=== PATIENT | female | born 1975 | race Caucasian/White ===

== ENCOUNTER → 2018-02-10 16:47 | Outpatient (CLI) | payer OTHER, SELFPAY ==
--- NOTE | 2018-02-10 16:51 | RAD_ITS ---
STUDY: X-RAY - ABDOMEN/PELVIS REASON FOR EXAM: Female, 42 years old. Left flank pain TECHNIQUE: Supine and upright views of the abdomen and pelvis were obtained. COMPARISON: None. FINDINGS: The lung bases are unremarkable. There is an unremarkable bowel gas pattern. There is no demonstrated free abdominal air. There is a 7 mm calcific density in the right upper abdomen. There are a few small calcific densities projected over the mid left renal shadow on all of the images. There are small calcifications in the low pelvis. The soft tissues are unremarkable. There is minimal levoscoliosis. RAD/Abd Inc Decub and/or Erect IMPRESSION: There are three or four calcific densities in the low right pelvis and a tiny calcific density in the low left pelvis. Although these likely represent phleboliths, ureteral stones are not completely excluded. There are questionable stones in the midpole of the left kidney. There is a possible 7 mm gallstone in the right upper abdomen. Electronically Signed: Tiesha Amin MD at 17:11 EDT Tel Direct: [phone], Service support ,
== END ==
PROVIDERS: Family Provider Family Medicine; PCP Family Medicine; Visit Provider Nurse Practitioner Adult Health
DX: R10.32 Left lower quadrant pain (principal)
CPT/HCPCS: 74019

== ENCOUNTER → 2018-05-19 14:26 | Outpatient (CLI) | payer OTHER, SELFPAY ==
[2018-05-19 21:31] LABS: Follicle Stimulating Hormone 25.5 mIU/mL; Luteinizing Hormone 38.4 mIU/mL; Thyroid Stim Hormone (TSH) 4.04 uIU/mL (0.358-3.74)
--- OUTSIDE RECORDS SUMMARY | 2018-08-21 02:09 | XMS RPT_ITS ---
:1975 Author Organization [facility] Care Team Providers Name Role Phone Tita Martinez Attending Unavailable Tita Martinez Referring Unavailable Tremayne Roman Primary Care Unavailable Tita Martinez Attending Unavailable Tita Martinez Referring Unavailable Tremayne Roman Primary Care Unavailable Tita Martinez Attending Unavailable Tita Martinez Referring Unavailable Tremayne Roman Primary Care Unavailable PROBLEMS PROBLEMS DATE TYPE CONDITION / CODE ATTENDING STATUS SOURCE 02/10/2018 Unknown R10.32 - Left Tita Martinez Active [place] lower quadrant [facility] pain / Hospital R10.32(ICD-10) Repository PROCEDURES PROCEDURES No Procedure Records FoundRESULTS RESULTS TRANSVAGINAL Observed: 05/28/2018 Status: F Source: [place] NON- 12:17 PM [facility] REPOSITORY [facility] Imaging Services [address] [place] [address] Transvaginal Non- MR#: [id number] Acct: [id number] Name: CHATO LLAMAS Rep #: [id number] : 1975 F 42 From: Sridhar Malagon DO PCP: Tremayne Roman MD Status: REG CLI Study: Transvaginal Non- Date of Exam: 05/28/18 Exam# [id number] Ordering Dr: Tita Martinez STUDY: ULTRASOUND OF THE FEMALE PELVIS - COMPLETE REASON FOR EXAM: Female, 42 years old. Amenorrhea. Light. Began 2 days ago. LMP: May 26, 2018. TECHNIQUE: Transabdominal and Transvaginal TECHNICAL QUALITY: Adequate. COMPARISON: None FINDINGS: The uterus is anteverted and is in a midline position. The uterus measures 9.2 x 5.6 x 3.9 cm. There is a Nabothian cyst of the cervix. The endometrium measures 6 mm in thickness, and is . There is no demonstrated endometrial mass. There is a 1 x 0.7 x 0.8 cm subserosal fibroid in the anterior fundal wall I.U.D. - The patient does not have an I.U.D. The right ovary is visualized. The right ovary measures 4.3 x 3.8 x 2.9 cm. There is a 3.2 x 3.6 x 2.6 cm simple. Other follicles are noted.. There is no visualized right adnexal mass or complex lesion. There is normal arterial and normal venous vascularity. The left ovary is visualized. The left ovary measures 3.4 x 2.9 x 1.8 cm. There is a 2.2 x 2.4 x 1.8 cm cyst. There is no visualized left adnexal mass or complex lesion. There is normal arterial and normal venous vascularity. There is no fluid in the cul-de-sac. The pre void volume of the bladder was 59 ml. Polycystic ovary disease: No. US/Transvaginal Non- IMPRESSION: 1. Anterior subserosal fundal fibroid. 2. Normal endometrium. 3. Nabothian cysts. 4. Bilateral ovarian cysts. Electronically Signed: Sridhar Malagon DO at 19:54 EST Tel [phone], Service support , CC: BRODIE Martinez; Tremayne Roman MD Tongue Presser: Signed PELVIC (NON ) Observed: 05/28/2018 Status: F Source: [place] 12:17 PM [facility] REPOSITORY [facility] Imaging Services [address] [place] [address] Pelvic (Non ) MR#: [id number] Acct: [id number] Name: CHATO LLAMAS Rep #: [id number] : 1975 F 42 From: Sridhar Malagon DO PCP: Tremayne Roman MD Status: REG CLI Study: Pelvic (Non ) Date of Exam: 05/28/18 Exam# [id number] Ordering Dr: Tita Martinez HIM SPECIALIST-C STUDY: ULTRASOUND OF THE FEMALE PELVIS - COMPLETE REASON FOR EXAM: Female, 42 years old. Amenorrhea. Light. Began 2 days ago. LMP: May 26, 2018. TECHNIQUE: Transabdominal and Transvaginal TECHNICAL QUALITY: Adequate. COMPARISON: None FINDINGS: The uterus is anteverted and is in a midline position. The uterus measures 9.2 x 5.6 x 3.9 cm. There is a Nabothian cyst of the cervix. The endometrium measures 6 mm in thickness, and is . There is no demonstrated endometrial mass. There is a 1 x 0.7 x 0.8 cm subserosal fibroid in the anterior fundal wall I.U.D. - The patient does not have an I.U.D. The right ovary is visualized. The right ovary measures 4.3 x 3.8 x 2.9 cm. There is a 3.2 x 3.6 x 2.6 cm simple. Other follicles are noted.. There is no visualized right adnexal mass or complex lesion. There is normal arterial and normal venous vascularity. The left ovary is visualized. The left ovary measures 3.4 x 2.9 x 1.8 cm. There is a 2.2 x 2.4 x 1.8 cm cyst. There is no visualized left adnexal mass or complex lesion. There is normal arterial and normal venous vascularity. There is no fluid in the cul-de-sac. The pre void volume of the bladder was 59 ml. Polycystic ovary disease: No. US/Pelvic (Non ) IMPRESSION: 1. Anterior subserosal fundal fibroid. 2. Normal endometrium. 3. Nabothian cysts. 4. Bilateral ovarian cysts. Electronically Signed: Sridhar Malagon DO at 19:54 EST Tel [phone], Service support , CC: BRODIE Martinez; Tremayne Roman MD Tongue Presser: Signed THYROID STIM HORMONE Collected: 05/19/2018 Status: F Source: [place] (TSH) 2:34 PM [facility] REPOSITORY TYPE CODE TESTS RESULT OUT OF RANGE REFERENCE UNITS LAB L501.9520 0.358-3.74 uIU/mL High TSH 4.04 Performed By: #### L501.9520 #### [facility] [address] [place], [address] FSH AND LH Collected: 05/19/2018 Status: F Source: [place] 2:34 PM [facility] REPOSITORY TYPE CODE TESTS RESULT OUT OF RANGE REFERENCE UNITS LAB L3100.5125 mIU/mL Normal FSH 25.5 Result Comment: NORMAL REFERENCE RANGES FEMALE FOLLICULAR 2.3 - 12.6 mIU/mL MID-CYCLE PEAK 5.2 - 17.5 mIU/mL LUTEAL 1.7 - 12.9 mIU/mL POST-MENOPAUSAL ON MHT 5.9 - 72.8 mIU/mL NOT ON MHT 12.7 - 132.2 mlU/mL MALE 0.7 - 10.8 mIU/mL NEW TEST METHOD AND REFERENCE RANGES OCTOBER 21, 2011 LAB L3100.5170 mIU/mL Normal 38.4 LH Result Comment: NORMAL REFERENCE RANGES FEMALE FOLLICULAR 1.9 - 26.2 mIU/mL MID-CYCLE PEAK 22.8 - 76.1 mIU/mL LUTEAL 0.6 - 16.6 mIU/mL POST-MENOPAUSAL ON MHT 1.1 - 52.4 mIU/mL NOT ON MHT 8.6 - 61.8 mIU/mL MALE 1.2 - 10.6 mIU/mL NEW TEST METHOD AND REFERENCE RANGES OCTOBER 21, 2011 Performed By: #### L3100.5055 #### [facility] [address], [address] ABD INC DECUB Observed: 02/10/2018 Status: F Source: [place] AND/OR ERECT 4:52 PM [facility] REPOSITORY [facility] Imaging Services [address] [place] [address] Abd Inc Decub and/or Erect MR#: [id number] Acct: [id number] Name: CHATO LLAMAS Rep #: [id number] : 1975 F 42 From: Tiesha Amin MD PCP: Tremayne Roman MD Status: REG CLI Study: Abd Inc Decub and/or Erect Date of Exam: 02/10/18 Exam# [id number] Ordering Dr: Tita Martinez STUDY: X-RAY - ABDOMEN/PELVIS REASON FOR EXAM: Female, 42 years old. Left flank pain TECHNIQUE: Supine and upright views of the abdomen and pelvis were obtained. COMPARISON: None. FINDINGS: The lung bases are unremarkable. There is an unremarkable bowel gas pattern. There is no demonstrated free abdominal air. There is a 7 mm calcific density in the right upper abdomen. There are a few small calcific densities projected over the mid left renal shadow on all of the images. There are small calcifications in the low pelvis. The soft tissues are unremarkable. There is minimal levoscoliosis. RAD/Abd Inc Decub and/or Erect IMPRESSION: There are three or four calcific densities in the low right pelvis and a tiny calcific density in the low left pelvis. Although these likely represent phleboliths, ureteral stones are not completely excluded. There are questionable stones in the midpole of the left kidney. There is a possible 7 mm gallstone in the right upper abdomen. Electronically Signed: Tiesha Amin MD at 17:11 EDT Tel Direct: [phone], Service support , CC: Tita Martinez; Tremayne Roman MD Tongue Presser: Signed ALLERGIES ALLERGIES No Allergies Records FoundENCOUNTERS ENCOUNTERS ADMIT/DISCHARGE ACCOUNT ADMITTING ENCOUNTER LOCATION SOURCE NUMBER CLASS 05/28/2018 [id number] Ambulatory [place] [facility] ing:OPUS Repository 05/19/2018 [id number] Ambulatory [place] [facility] ing:MTLAB Repository 02/10/2018 [id number] Ambulatory [place] [facility] ing:MTRAD Repository PAYERS PAYERS ENCOUNTER GUARANTOR PAYER SUBSCRIBER SOURCE 05/28/2018 CHATO [place] Primary CHATO [place] [id number] Insurance:MEDICAL CARMONDOB: [facility] [id number] Number: Repository [id number]: [id number] [phone] (HP) Date:[id number] [address]SW: 05/28/2018 Secondary NOT GIVENUNK [place] Insurance:SELF PAY [facility] Number: Effective Repository Date:2018-05-19 05/19/2018 CHATO [place] Primary CHATO [place] [id number] Insurance:MEDICAL CARMONDOB: [facility] [id number], [place] Number: Repository [id number]: [phone] [id number] [phone] (HP) Date:[id number] [address]MS: 05/19/2018 Secondary NOT GIVENUNK [place] Insurance:SELF PAY [facility] Number: Effective Repository Date:2018-05-19 02/10/2018 CHATO [place] Primary CHATO [place] [id number] Insurance:MEDICAL CARMONDOB: [facility] [id number], [place] Number: Repository [id number]: [phone]) [id number] [phone] () Date:[id number] [address]NY: 02/10/2018 Secondary NOT GIVENUNK [place] Insurance:SELF PAY [facility] Number: Effective Repository Date:2018-02-10
== END ==
PROVIDERS: Family Provider Family Medicine; PCP Family Medicine; Referring Provider Nurse Practitioner Adult Health; Visit Provider Nurse Practitioner Adult Health
DX: R53.83 Other fatigue (principal)
CPT/HCPCS: 83001; 83002; 84443

== ENCOUNTER → 2018-05-28 12:15 | Outpatient (CLI) | payer OTHER, SELFPAY ==
--- NOTE | 2018-05-28 12:17 | US_ITS ---
STUDY: ULTRASOUND OF THE FEMALE PELVIS - COMPLETE REASON FOR EXAM: Female, 42 years old. Amenorrhea. Light. Began 2 days ago. LMP: May 26, 2018. TECHNIQUE: Transabdominal and Transvaginal TECHNICAL QUALITY: Adequate. COMPARISON: None FINDINGS: The uterus is anteverted and is in a midline position. The uterus measures 9.2 x 5.6 x 3.9 cm. There is a Nabothian cyst of the cervix. The endometrium measures 6 mm in thickness, and is . There is no demonstrated endometrial mass. There is a 1 x 0.7 x 0.8 cm subserosal fibroid in the anterior fundal wall I.U.D. - The patient does not have an I.U.D. The right ovary is visualized. The right ovary measures 4.3 x 3.8 x 2.9 cm. There is a 3.2 x 3.6 x 2.6 cm simple. Other follicles are noted.. There is no visualized right adnexal mass or complex lesion. There is normal arterial and normal venous vascularity. The left ovary is visualized. The left ovary measures 3.4 x 2.9 x 1.8 cm. There is a 2.2 x 2.4 x 1.8 cm cyst. There is no visualized left adnexal mass or complex lesion. There is normal arterial and normal venous vascularity. There is no fluid in the cul-de-sac. The pre void volume of the bladder was 59 ml. Polycystic ovary disease: No. US/Pelvic (Non ) IMPRESSION: 1. Anterior subserosal fundal fibroid. 2. Normal endometrium. 3. Nabothian cysts. 4. Bilateral ovarian cysts. Electronically Signed: Sridhar Malagon DO at 19:54 EST Tel [phone], Service support ,
--- NOTE | 2018-05-28 12:17 | US_ITS ---
STUDY: ULTRASOUND OF THE FEMALE PELVIS - COMPLETE REASON FOR EXAM: Female, 42 years old. Amenorrhea. Light. Began 2 days ago. LMP: May 26, 2018. TECHNIQUE: Transabdominal and Transvaginal TECHNICAL QUALITY: Adequate. COMPARISON: None FINDINGS: The uterus is anteverted and is in a midline position. The uterus measures 9.2 x 5.6 x 3.9 cm. There is a Nabothian cyst of the cervix. The endometrium measures 6 mm in thickness, and is . There is no demonstrated endometrial mass. There is a 1 x 0.7 x 0.8 cm subserosal fibroid in the anterior fundal wall I.U.D. - The patient does not have an I.U.D. The right ovary is visualized. The right ovary measures 4.3 x 3.8 x 2.9 cm. There is a 3.2 x 3.6 x 2.6 cm simple. Other follicles are noted.. There is no visualized right adnexal mass or complex lesion. There is normal arterial and normal venous vascularity. The left ovary is visualized. The left ovary measures 3.4 x 2.9 x 1.8 cm. There is a 2.2 x 2.4 x 1.8 cm cyst. There is no visualized left adnexal mass or complex lesion. There is normal arterial and normal venous vascularity. There is no fluid in the cul-de-sac. The pre void volume of the bladder was 59 ml. Polycystic ovary disease: No. US/Transvaginal Non- IMPRESSION: 1. Anterior subserosal fundal fibroid. 2. Normal endometrium. 3. Nabothian cysts. 4. Bilateral ovarian cysts. Electronically Signed: Sridhar Malagon DO at 19:54 EST Tel [phone], Service support ,
== END ==
PROVIDERS: Family Provider Family Medicine; PCP Family Medicine; Referring Provider Nurse Practitioner Adult Health; Visit Provider Nurse Practitioner Adult Health
DX: N91.2 Amenorrhea, unspecified (principal)
CPT/HCPCS: 76830; 76856; 93976

== ENCOUNTER → 2018-08-05 15:17 | Outpatient (CLI) | payer OTHER, SELFPAY ==
--- NOTE | 2018-08-05 15:20 | RAD_ITS ---
STUDY: X-RAY - LUMBAR SPINE REASON FOR EXAM: Female, 42 years old. Back pain. TECHNIQUE: 5 view(s) of the lumbar spine were obtained. COMPARISON: None FINDINGS: Normal lumbar lordosis. There is no substantial scoliosis. There is a normal alignment of the vertebrae. Normal vertebral bodies and endplates. Normal disc space heights. The soft tissue structures are unremarkable. RAD/L/S Spine Min 4 Views IMPRESSION: Within normal limits x-ray examination of the lumbar spine. Electronically Signed: Odilia Deng MD at 16:07 EST Tel , Service support ,
== END ==
PROVIDERS: Family Provider Family Medicine; PCP Family Medicine; Referring Provider Family Medicine; Visit Provider Family Medicine
DX: M54.9 Dorsalgia, unspecified (principal)
CPT/HCPCS: 72110

== ENCOUNTER → 2018-08-07 10:16 | Outpatient (CLI) | payer OTHER, SELFPAY ==
--- NOTE | 2018-08-07 10:25 | MRI_ITS ---
STUDY: MRI LUMBAR SPINE WITHOUT CONTRAST REASON FOR EXAM: Female, 42 years old. Low back pain radiating to left hip TECHNIQUE: Standardized fat and water weighted pulse sequences were obtained in the sagittal and axial planes. COMPARISON: None FINDINGS: T12-L1: Normal endplates. Normal disc height, hydration and morphology. Normal bilateral facet joints. Normal central canal and bilateral lateral recesses. Normal bilateral intervertebral neural foramina. Normal lumbar lordosis. There is no substantial scoliosis. Normal conus medullaris that terminates at L1 L1-2: Normal endplates. Normal disc height, hydration and morphology. Normal bilateral facet joints. Normal central canal and bilateral lateral recesses. Normal bilateral intervertebral neural foramina. L2-3: Normal endplates. Normal disc height, hydration and morphology. Normal bilateral facet joints. Normal central canal and bilateral lateral recesses. Normal bilateral intervertebral neural foramina. L3-4: Normal endplates. Normal disc height, hydration and minor annular bulge.. There is extradural soft tissue density in the left nerve root foramen extending cephalad creating left neuroforaminal stenosis and impinging upon the exiting nerve root.. This may represent an extruded disc fragment however it appears to be slightly different angle than the disc and could possibly represent a meningioma or other extradural mass. Would recommend limited repeat contrast-enhanced study Normal bilateral facet joints. Normal central canal and bilateral lateral recesses.. L4-5: Normal endplates. Normal disc height, hydration and minimal annular bulge.. Facet arthropathy and thickening of ligamenta flava.. Normal central canal and bilateral lateral recesses. Mild bilateral neuroforaminal stenosis. L5-S1: Normal endplates. Normal disc height, hydration and tiny central disc protrusion.. Bilateral facet arthropathy.. Normal central canal and bilateral lateral recesses. Normal bilateral intervertebral neural foramina. Normal visualized sacral ala. Normal visualized paraspinous soft tissue structures. MRI/Spine Lumbar (Routine) IMPRESSION: Left neuroforaminal stenosis at L3-4 and impingement upon the exiting nerve root secondary to soft tissue density possibly extruded disc fragment however cannot exclude other extradural mass. Limited repeat scan with contrast would be helpful for further assessment Mild bilateral neuroforaminal stenosis at L4-5 secondary to minimal annular bulge and facet arthropathy.. Tiny central disc protrusion at L5-S1 and bilateral facet arthropathy without spinal stenosis Electronically Signed: Bradford Tan MD at 19:28 EST , Service support ,
== END ==
PROVIDERS: Family Provider Family Medicine; PCP Family Medicine; Referring Provider Family Medicine; Visit Provider Family Medicine
DX: M54.9 Dorsalgia, unspecified (principal)
CPT/HCPCS: 72148

== ENCOUNTER 2018-08-10 13:00 | Outpatient (RCR) | payer OTHER, SELFPAY ==
--- NOTE | 2018-08-06 10:56 | HP.PTEVAL ---
Patient's Visit Information CHATO LLAMAS is a 42 year old F referred to Physical Therapy by Tremayne Roman MD with a diagnosis of Back Pain. Date of Evaluation: 08/06/18 Physical Therapist: Jennifer Pablo DPT - Visit Plan Plan: Difficult to assess secondary to signifcant pain- will re-assess when patient returns- plans to see MD immediatly after PT - Subjective Findings: Messing around with her son wrestling and felt a twinge in her back and then it has been progressively worse since then- 2 weeks ago. [place] it at the time and was okay for 5 days thought she pinched her sciatic. Went to Chiropractor Friday of last week Dr. Abrams. Who diagnosed with glut muscle and was mimicking sciatica did a manipulation pelvis/tailbone out of alignment. Went back the next day- and saw a massotherapist who gave her a foam roll. [place] okay on Friday and then Sat watched kids from bleachers and Friday was bad. Friday back to chiro and then called and saw Dr. Lopez. Gave her Flexeril at bedtim and Neurontin- took it last night at 8:30 and she has been up since 2:30 with pain. X-rays which were negative. Can't find any position that is comfortable. The pain is in the back and runs down the left leg to the knee. Worst: 10/10 Agg:walking, standing. Hard to find a comfortable position. Eases: a hot bath. Leg feels like its cramping- Feels a stabbing pain in the back and down the side of her leg. Feels like a tight ball. No N/T in the lower extremity but does have achy like after your foot is asleep and waking back up. Sleep: disturbed- has been in the reclyner. No previous back injury. Has sciatica issues after kids but nothing else. Family history of back issues-spinal stenosis and back surgeries. 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 PMHX: ACL repair Apr 2010, Meds: control, boothspirone, Flexeril (new), Neurontin (new) - Objective Posture: poor- severely hunched forwards to the left and constant movement. Gait: antalgic- decreased stance on the left LE- hunched forwards- slow shiva. ROM: Lumbar: limited severely in all directions with pain Hip: wfl but reports pain with IR in the glut/back. Knee/ankle: WNL. Strength: Ankle: 5/5, knee: 5/5, hip: 4/5 with pain Core: poor. Special Test: bari: positive for back pain. patient can move easily between positions but its guarded and reports significant pain. Severe Pain with prone lying for 15 seconds- moved out of position and was tearful. - Goals Goal 1:: Patient will be I with HEP and progression Goal Time Frame: 4-6 Weeks Goal 2:: Patient will maintain proper posture t/o tx session to demo increased core s/s Goal Time Frame: 4-6 Weeks Goal 3:: Patient will report 0/10 pain for 1 week Goal Time Frame: 4-6 Weeks - Rehabilitation Potential Physical Therapy Diagnosis: Patient presents with hypmobility- she has decreased ROM, strength and muscular endurance leading to poor posture and signficant increased pain with ADL's. Rehabilitation Potential: Fair - Anticipated Interventions Patient/Client Instruction: Educate patient on: Benefits of Fitness Program Therapeutic Exercise to Include: Strength training, Endurance training, Balance training, Body mechanics, Postural training, Flexibilty training, Gait and locomotor training, Neuromotor development, Passive ROM, Active ROM, Dynamic Lumbar Stabilization, Jf Exercises For the Purpose of:: To improve muscle performance and motor function TENS: Yes Cryotherapy (ice pack, ice massage): Yes Thermo therapy (hot pack): Yes Ultrasound (thermal/non thermal): Yes Thank you for the opportunity to evaluate your patient. For Medicare and Medicare HMO plans, please review the plan of care and approve it. It will need to be FAXED BACK to us at [phone] for Medicare purposes. For Medicare only, by signing this I certify the plan of care. Please let me know if there are questions or concerns regarding this plan of care. Physician Signature: Date:
--- NOTE | 2018-09-14 12:23 | HP.PT.NRP ---
HP - Discharge Summary (1) - Patient Information CHATO LLAMAS was seen in my office for initial evaluation on 08/06/18. The following Plan of Care was established for this patient: - Anticipated Interventions Patient/Client Instruction: Educate patient on: Benefits of Fitness Program Therapeutic Exercise to Include: Strength training, Endurance training, Balance training, Body mechanics, Postural training, Flexibilty training, Gait and locomotor training, Neuromotor development, Passive ROM, Active ROM, Dynamic Lumbar Stabilization, Jf Exercises For the Purpose of:: To improve muscle performance and motor function TENS: Yes Cryotherapy (ice pack, ice massage): Yes Thermo therapy (hot pack): Yes Ultrasound (thermal/non thermal): Yes This patient was last seen in our office . Pertinent comments regarding their Physical therapy will appear below: This patient has not returned to Physical Therapy and is appropriate to return to MD for further follow-up as needed. At this point I will be discontinuing this patient from physical therapy. I would be happy to see this patient again in the future if found appropriate by the physician. Thank you! Sarita Arciniega, PT, Cert MDT
== END 2018-08-10 19:00 | disposition home or self-care (01) ==
LOC: PT 13:00
PROVIDERS: Family Provider Family Medicine; PCP Family Medicine; Referring Provider Family Medicine; Visit Provider Family Medicine
DX: M54.9 Dorsalgia, unspecified (principal)
CPT/HCPCS: 97162; 97530

== ENCOUNTER → 2018-08-18 10:31 | Outpatient (CLI) | payer OTHER, SELFPAY ==
--- NOTE | 2018-08-18 10:45 | MRI_ITS ---
HISTORY: F/ U to abnormal MRI May 2018. Left L3-4 extradural lesion seen on noncontrast study. EXAM/TECHNIQUE: MR Spine Lumbar W/ Contrast: 1.5 Yolanda, postcontrast images following 17 cc Dotarem administered intravenously. COMPARISON: MRI lumbar spine without contrast 08/07/18. FINDINGS: # of images incl. paperwork: 71 Again demonstrated is a 10 x 6 x 11 TRV X AP X craniocaudad extradural lesion along the left posterior lower aspect of the L3 vertebral body. As before this has moderate mass-effect upon the adjacent left L3 nerve root as it extends toward and exits the foramen. This lesion shows no definite enhancement within it; the immediately adjacent dura enhances. This is most likely a disc fragment. There is also focal, linear, [id number] enhancement of the included portion of the left L3 nerve root as it descends within the cauda equina and exits the left L3-4 foramen where it is displaced by the disc fragment. No other abnormal enhancement. No clumping of nerve roots. Paraspinal soft tissues unremarkable. Remainder of the study similar to prior. No enhancing osseous lesions. MRI/Spine Lumbar WITH Contrast IMPRESSION: The extradural lesion along the left posterior, lower aspect of the L3 vertebral body does not enhance and most likely represents an extruded disc fragment. Focal enhancement of the left L3 nerve root which is displaced by this disc fragment. Enhancement of nerve roots being displaced and compressed by disc protrusion and other pathologic processes has been described and is most likely etiology of this enhancement. at 2352 Reported and signed by: Kris Chris MD Electronically Signed: Kris Chris, at 23:51 EDT Tel , Service support ,
== END ==
PROVIDERS: Family Provider Family Medicine; PCP Family Medicine; Referring Provider Orthopaedic Surgery; Visit Provider Orthopaedic Surgery
DX: M51.26 Other intervertebral disc displacement, lumbar region (principal)
CPT/HCPCS: 72149; A9575

== ENCOUNTER 2018-11-25 11:30 | Outpatient (RCR) | payer OTHER, SELFPAY ==
--- NOTE | 2018-09-18 08:30 | HP.PTEVAL ---
Patient's Visit Information CHATO LLAMAS is a 42 year old F referred to Physical Therapy by Naeem Pavon DO with a diagnosis of AFTERCARE FOLLOWING SURGERY. Date of Evaluation: 09/18/18 Physical Therapist: Lionel Hoffman PT, Cert MDT, OCS - Visit Plan Frequency: 2x /Week Duration: 4 Weeks Plan: S/P LUMBAR MICRODISECTOMY 3WEEK ROM LUMBAR,WEAN BRACE. INTIATE POSTURAL EX'S,DLS ,GRADE LUMBAR ROM,LE FLEXABLITY - Subjective Findings: This 42 y/o female presenst to physical therapy with left L3-4 LUMBAR MICRODISECTOMY. Patient underwent s/p surgery at [facility] done by DR Pavon.Patient d/c from with brace with no BLT.Tried PT at but made symptoms worse. Patient had MRI ,then had surgery. Tried multiple medication. Patient has no left leg symptoms ,just tightness in right hamstring/calf. Denies parathesia/tingling ,occassionally knee. Bowel/bladder-. Coughing/sneezing -. Symptoms can affect sleep. Patient has limited ability to peform ADL'S ,housework tasks and job demands. Patient symptoms affect QOL and function. VOCATION: Speech Pathologist. SOCIAL: - Objective POSTURE: WFL. INSCIONS: well approximate. GAIT: normal shiva reciprocal pattern. NEURO: denies parathesia/tingling,reflexes L3-L4,L4-L5,L5-S1 2/3. FLEXABLITY: hams min loss. LUMBAR ROM: flexion min loss,extension min loss,side glides min loss. MMT: quads/hams/hip 4/5,ankle 4/5 - Special Tests L/S Slump test left side: Negative L/S Slump test right side: Negative L/S Left Straight Leg Raise: Negative L/S Right Straight Leg Raise: Negative Lumbar Standing: Flexion - Mechanical Response: No effect Lumbar Standing: Flexion - Symptoms During Testing: No effect Lumbar Standing: Flexion - Symptoms After Testing: No effect Lumbar Standing: Extension - Mechanical Response: No effect Lumbar Standing: Extension - Symptoms During Testing: No effect Lumbar Standing: Extension - Symptoms After Testing: No effect Lumbar Standing: Right Side Glides - Mechanical Response: No effect Lumbar Standing: Right Side [employer] - Symptoms During Testing: No effect Lumbar Standing: Right Side [employer] - Symptoms After Testing: No effect Lumbar Standing: Left Side [employer] - Mechanical Response: No effect Lumbar Standing: Left Side [employer] - Symptoms During Testing: No effect Lumbar Standing: Left Side [employer] - Symptoms After Testing: No effect - Goals Goal 1:: Patient to be Independant with HEP Goal Time Frame: 4-6 Weeks Goal 2:: Pateint to be Independant with posture/body mecahanics. Goal Time Frame: 4-6 Weeks Goal 3:: Patient to improve lumbar ROM for function of recovery. Goal Time Frame: 4-6 Weeks Goal 4:: Patient improve back owestry score by 5 ponts or greater to improve QOL. Goal Time Frame: 4-6 Weeks Goal 5:: Patient to return to prior level of activities housework/job demands without difficulty. Goal Time Frame: 4-6 Weeks - Rehabilitation Potential Physical Therapy Diagnosis: Patient under s/p lumbar discectomy L3-4 with decrease core strength,ROM,function impairs ADL'S and gait/job demnads. Rehabilitation Potential: Good - Anticipated Interventions Patient/Client Instruction: Educate patient on: Condition, Plan of Care For the Purpose of:: To decrease pain, To increase ROM, To improve muscle performance and motor function, To improve ability to perform ADL's, To increase tolerance to activity/condition/position, To improve ability of physical actions for home/community/work/leisure, To improve health of tissue, To decrease soft tissue restriction, To reduce risk of recurrence, To improve ability to perform tasks related to life management Therapeutic Exercise to Include: Strength training, Endurance training, Body mechanics, Postural training, Flexibilty training, Active ROM, Dynamic Lumbar Stabilization For the Purpose of:: To increase ROM, To improve ability to perform ADL's, To increase tolerance to activity/condition/position, To improve ability of physical actions for home/community/work/leisure, To improve health of tissue, To decrease soft tissue restriction, To increase flexibility/ROM, To reduce risk of recurrence, To improve ability to perform tasks related to life management TENS: Yes IF ES: Yes Cryotherapy (ice pack, ice massage): Yes Thermo therapy (hot pack): Yes For the Purpose of:: To decrease pain, To increase ROM, To improve ability of physical actions for home/community/work/leisure, To improve gait and locomotor functions, To decrease soft tissue restriction Thank you for the opportunity to evaluate your patient. For Medicare and Medicare HMO plans, please review the plan of care and approve it. It will need to be FAXED BACK to us at [phone] for Medicare purposes. For Medicare only, by signing this I certify the plan of care. Please let me know if there are questions or concerns regarding this plan of care. Physician Signature: Date:
--- NOTE | 2018-11-25 12:18 | HP.PTDCSUM ---
HP - PT D/C Summary It has been my pleasure to treat CHATO LLAMAS under orders from Naeem Pavon DO, for the diagnosis of AFTERCARE FOLLOWING SURGERY for a total of 18 visit(s). Discharge Date: 11/25/18 Please see the following information for a summary of their discharge status. - Subjective Subjective: Doing good ..Return to all functional activites. work ect - Pain Left Buttocks Pain Intensity (Out of 10): 0 - Overall Improvement % Improvement: 100 - Objective Objective/Function: POSTURE: WNL. GAIT: NORMAL JOCELINE. MMT: 5/5. LUMBAR ROM : WNL. -SLR - Goals Goal 1:: Patient to be Independant with HEP Goal Progress: Goal Met Goal 2:: Pateint to be Independant with posture/body mecahanics. Goal Progress: Goal Met Goal 3:: Patient to improve lumbar ROM for function of recovery. Goal Progress: Goal Met Goal 4:: Patient improve back owestry score by 5 ponts or greater to improve QOL. Goal Progress: Goal Met Goal 5:: Patient to return to prior level of activities housework/job demands without difficulty. Goal Progress: Goal Met Goal 6:: Return to function of recovery and prophalxis - Plan Plan: D/C TO HEP - D/C Information Discharge Comments: HEP If there are questions or concerns regarding this patient's physical therapy, please feel free to call me at [phone]. Thank you for the referral of this patient. Sincerely, Lionel Hoffman, PT, Cert MDT, OCS
== END 2018-11-25 19:00 | disposition home or self-care (01) ==
LOC: PT 11:30
PROVIDERS: Family Provider Family Medicine; PCP Family Medicine; Referring Provider Orthopaedic Surgery; Visit Provider Orthopaedic Surgery
DX: Z48.89 Encounter for other specified surgical aftercare (principal)
CPT/HCPCS: 97110; 97162

== ENCOUNTER → 2019-11-18 15:50 | Outpatient (CLI) | payer OTHER, SELFPAY ==
--- NOTE | 2019-11-18 15:53 | RAD_ITS ---
STUDY: X-RAY RIGHT FOOT, FIFTH TOE REASON FOR EXAM: Female, 44 years old. PATIENT RAN HER TOE INTO SOMETHING HARD. PAIN, SWELLING TECHNIQUE: 3 view(s) of the toe were obtained. COMPARISON: None. FINDINGS: Normal visualized metatarsus. Normal metatarsophalangeal (M.T.P) joint. Normal interphalangeal joints. Normal phalanges and interphalangeal joints. There is no demonstrated fracture. The soft tissue structures are unremarkable. RAD/Toe(s) Min 2 Views IMPRESSION: Normal x-ray of the toe. Electronically Signed: Joe Jackson MD at 22:57 EDT , Service support ,
== END ==
PROVIDERS: PCP Family Medicine; Referring Provider Family Medicine; Visit Provider Family Medicine
DX: M79.674 Pain in right toe(s) (principal)
CPT/HCPCS: 73660

== ENCOUNTER → 2021-09-21 | Outpatient (CLI) | payer OTHER, SELFPAY ==
[2021-09-21 15:38] LABS: ALB/GLOB Ratio 1.1 RATIO (0.9-2.4); AST(SGOT) 18 U/L (15-37); Alanine Aminotransfer ALT/SGPT 27 U/L (13-56); Albumin, Serum 3.9 g/dL (3.2-5.0); Alkaline Phosphatase 102 U/L (45-117); Anion Gap 5 (5-15); BUN 9 mg/dL (7-18); BUN/Creat Ratio 11.5 RATIO (10-20); Calcium,Total 8.6 mg/dL (8.5-10.1); Chloride 106 mmol/L (98-107); Cholesterol 188 mg/dL (200); Creatinine, Serum 0.78 mg/dL (0.55-1.02); EST Glomerular Filtration Rate 84 mL/min (>60); Est Glom Filt Rate - Afr Amer 102 mL/min (>60); Free T3 2.9 pg/mL (2.18-3.98); Globulin 3.4 g/dL (2.2-4.2); Glucose 80 mg/dL (74-106); High Density Lipoprotein 67 mg/dL; Potassium 3.8 mmol/L (3.5-5.1); Protein, Total 7.3 g/dL (6.4-8.2); Sodium Level 138 mmol/L (136-145); T4 Free Direct 0.95 ng/dL (0.76-1.46); Triglycerides 119 mg/dL; Very Low Density Lipoprotein 24 mg/dL (5-40)
== END | disposition home or self-care (01) ==
LOC: MFPLAB 11:59
PROVIDERS: PCP Family Medicine; Referring Provider Family Medicine; Visit Provider Family Medicine
DX: Z00.00 Encounter for general adult medical examination without abnormal findings (principal); E03.9 Hypothyroidism, unspecified
CPT/HCPCS: 36415; 80053; 80061; 84439; 84443; 84481

== ENCOUNTER → 2022-11-04 | Outpatient (CLI) | payer OTHER, SELFPAY ==
[2022-11-04 17:47] LABS: Absolute Lymphocyte Count 2.85 X10^3/uL (0.83-4.51); Absolute Neutrophil Count 6.2 X10^3/uL (2.0-7.7); Basophil# 0.08 X10^3/uL; Basophil% 0.7 % (0-1); Eosinophil# 0.46 X10^3/uL; Eosinophils% 4.2 % (0-5); Hematocrit 41.1 % (37-47); Hemoglobin 12.9 g/dL (12.0-15.0); Lymphocyte # 2.85 X10^3/ul (0.83-4.51); Lymphocyte % 26.2 % (19-41); Mean Corp Hgb Conc 31.4 g/dL (32-36); Mean Corpuscular Hgb 29.5 pg (27.0-32.0); Mean Corpuscular Volume 94.1 fL (81-99); Mean Platelet Vol. 11.5 fl (6.2-12.0); NRBC Flagged by Analyzer 0 % (0-5); Neutrophil # 6.21 X10^3/uL (2.7-7.7); Neutrophil % 57.1 % (47-70); Platelet Count 223 K/mm3 (150-450); RBC Distribution Width CV 13.8 % (11.6-14.6); RBC Distribution Width SD 47.4 fl (35.1-43.9); Red Blood Count 4.37 M/mm3 (4.2-5.4); White Blood Count 10.9 K/mm3 (4.4-11.0)
[2022-11-04 18:10] LABS: Anion Gap 6 (5-15); BUN 11 mg/dL (7-18); BUN/Creat Ratio 13.2 RATIO (10-20); Calcium,Total 9.3 mg/dL (8.5-10.1); Chloride 108 mmol/L (98-107); Creatinine, Serum 0.83 mg/dL (0.55-1.02); EST Glomerular Filtration Rate 78 mL/min (>60); Est Glom Filt Rate - Afr Amer 94 mL/min (>60); Glucose 77 mg/dL (74-106); Magnesium 2.3 mg/dL (1.6-2.6); Potassium 3.7 mmol/L (3.5-5.1); Sodium Level 139 mmol/L (136-145)
== END | disposition home or self-care (01) ==
LOC: MFPLAB 16:41
PROVIDERS: PCP Family Medicine; Visit Provider Family Medicine
DX: R55 Syncope and collapse (principal)
CPT/HCPCS: 36415; 80048; 83735; 85025

== ENCOUNTER → 2022-11-15 | Outpatient (CLI) | payer OTHER, SELFPAY ==
--- NOTE | 2022-11-15 10:30 | STE_ITS ---
Reason For Study: Syncope Stress Results Protocol: Jackson Protocol Maximum Predicted HR: 172 bpm Target HR: 146 bpm % Maximum Predicted HR: 85 % DurationHeart Rate Stage (mm:ss) (bpm) BP Comment Baseline 63 110/70No Chest Pain Jackson Protocol Stage I 3:00 103 114/72No Chest Pain Jackson Protocol Stage II 3:00 130 130/70No Chest Pain Jackson Protocol Stage III 3:00 146 160/68No Chest Pain Recovery 91 118/72No Chest Pain Stress Duration: 9:00 mm:ss Maximum Stress HR: 146 bpm METS: 10 Baseline Echocardiogram Findings Stress Echo Wall motion Data Resting WM Intermediate WM Stress WM Doppler Measurements & Calculations TR max chinyere: 237.7 cm/sec TR max P.6 mmHg ECHO/Stress Test Echo w/o Contrast Interpretation Summary Exercise stress echo. 47-year-old lady with a history of chest pain. Resting EKG demonstrates sinus rhythm with a rate of 61 bpm normal intervals ar e noted resting blood pressure is 110/70 mmHg. The patient exercised according to the regular Jackson p rotocol for total duration of 9 minutes completing stage III of the Jackson protocol the maximum he art rate 146 bpm which was 84% of max impacted heart rate the maximum workload was 10 metabolic equivalents. At rest there were no ST or T wave changes noted to suggest ischemia and at peak exerci se upsloping ST changes were noted which did not meet the criteria for ischemia no chest pain w as noted. Stress echocardiogram. Resting echocardiogram demonstrated an ejection fraction of 55%. At peak exerci se there was thickening of all man and reduction of low ventricular cavity size peaking at approximately 65% with no wall motion abnormalities present. Good blood pressure response to exer cise was noted. Conclusion: Normal exercise stress echo with no EKG or echocardiographic criteria for ische priscilla. Preserved ejection fraction at rest and with exertion. Ordering Physician: Ruy Salazar Referring Physician: Tremayne Roman Performed By: Thelma Henao, AMAN, RVT
== END | disposition home or self-care (01) ==
PROVIDERS: PCP Family Medicine; Referring Provider Family Medicine; Visit Provider Family Medicine
DX: R55 Syncope and collapse (principal); R07.89 Other chest pain
CPT/HCPCS: 93017; 93350

== ENCOUNTER → 2023-02-14 | Outpatient (CLI) | payer OTHER, SELFPAY | END | disposition home or self-care (01) | LOC: MTLAB 07:37 | PROVIDERS: PCP Family Medicine; Referring Provider Family Medicine; Visit Provider Family Medicine | DX: R19.7 Diarrhea, unspecified (principal) | CPT/HCPCS: 87493; 87506 ==

== ENCOUNTER 2023-04-20 20:59 | Emergency (ER) | payer OTHER, SELFPAY ==
[2023-04-20 21:00] VITALS: BP 146/91; PULSE 62; RESP 18; TEMP 36.1; O2SAT 100
--- NOTE | 2023-04-20 21:06 | RAD_ITS ---
STUDY: X-RAY - LEFT ANKLE REASON FOR EXAM: Female, 47 years old. fall/injury TECHNIQUE: 3 view(s) of the ankle. COMPARISON: None. FINDINGS: Nondisplaced oblique fracture of the distal left fibula proximal to the tibial plafond. Normal medial and lateral malleoli. Normal tibiotalar articulation and ankle mortise. Normal visualized talus and calcaneus. Small plantar calcaneal enthesophyte. The visualized subtalar, talonavicular, calcaneocuboid and tarsal articulations are normal. The soft tissue structures are unremarkable. RAD/Ankle min 3 Views IMPRESSION: Nondisplaced oblique fracture of the distal fibula proximal to the tibial plafond. Electronically Signed: Nelson Knott MD at 21:22 EST ,
--- NOTE | 2023-04-20 21:06 | ED.VIS.LOWEX ---
HPI History of Present Illness Chief Complaint: Lower Extremity Injury Informant: patient and spouse/S.O. Narrative Narrative: Patient states she went outside to move her car and she stepped in a wet grass and slipped, causing her to roll her left ankle, causing immediate pain to the lateral aspect. No other injury although she did fall. Not able to put any weight on it since then. [facility] Medical History (Updated 04/20/23 @ 22:[address] Fam Maciel MD) Anxiety Depression Deviated nasal septum Home Medications duloxetine 60 mg capsule,delayed release 60 mg PO DAILY 04/20/23 [History Last Taken Unknown] hydrocodone-acetaminophen 5-325mg 5mg-325mg 1 tab PO Q6H PRN PRN Pain 3 days #10 TABLETS 04/20/23 [Rx Last Taken Unknown] Allergy/AdvReac Type Severity Reaction Status Date / Time No Known Allergies Allergy Verified 04/20/23 21:01 Family History no significant family his Surgical History (Updated 04/20/23 @ 21:35 by Wendy Baker) History of back surgery History of repair of ACL Social History (Updated 04/20/23 @ 21:35 by Wendy Baker) household members: family Smoking Status: Never smoker ROS ROS ED Constitutional Constitutional ED: Denies chills or fever(s) Musculoskeletal Musculoskeletal: Reports extremity pain; Denies neck pain Integumentary Denies Abrasions, rash or wounds Neurologic Neurologic: Denies paresthesias or weakness EXAM Physical Exam Const Vital Signs: 04/20/23 21:00 Temperature 97.0 F L Temperature Source Temporal Pulse Rate 62 Respiratory Rate 18 Blood Pressure 146/91 H Blood Pressure Mean 109 Pulse Ox 100 Oxygen Delivery Method Room Air Positive well nourished and well developed General Appearance ED: well developed and NAD Neck full ROM and supple Back/Spine normal ROM and normal to inspection Extremity Extremity Narrative: Limited range of motion left ankle due to pain. She is tender in the distal fibula, before the absolute distal aspect. There is no other areas of tenderness in the foot. This includes the base of the fifth metatarsal. Fibular head is nontender. Full range of motion of the knee without difficulty or pain. Medial malleolus nontender. No deformities. Otherwise extremity exam is benign. Neuro oriented x3, no focal motor deficits and no sensory deficits noted Sensorium / Orientation: alert Psych mental status grossly normal and thought process normal Skin no wounds Rashes: no rashes MDM MDM MDM Narrative Medical decision making narrative: Three-view x-ray series of the left ankle were obtained, shows a nondisplaced oblique fracture to the distal fibula, probably a Reddy B. We will keep her nonweightbearing put her in a boot off her pain medication and referral to orthopedics as an outpatient. Radiography Diagnostic Testing: Clinical Impression(s) from Imaging Studies Ankle X-Ray 04/20/23 21:06 IMPRESSION: Nondisplaced oblique fracture of the distal fibula proximal to the tibial plafond. Electronically Signed: Nelson Knott MD at 21:22 EST , Discharge Plan Triage Chief Complaint: Lower Extremity Injury ED Provider: Fam Maciel Dx/Rx/DC Orders Clinical Impression: Closed fracture of left distal fibula Instructions: Using Crutches: Xnq-Neayas-Aiafreu, ED Ankle Fracture, Distal Fibula Prescriptions: New hydrocodone-acetaminophen [hydrocodone-acetaminophen] 5-325 mg tablet 1 tab PO Q6H PRN PRN (Reason: Pain) 3 Days Qty: 10 0RF No Action duloxetine 60 mg capsule,delayed release(DR/EC) 60 mg PO DAILY Patient Comments: TAKE 1 CAPSULE BY MOUTH EVERY DAY Primary Care Provider: Tremayne Roman Referrals: Tremayne Roman MD [Primary Care Provider] - Angelo Cervantes MD [Med Staff - Active Staff] - As soon as possible (Call for appointment) Disposition Disposition: Home, Self Care
[2023-04-20 21:36] VITALS: BMI 35.4
[2023-04-20] MEDS: HYDROcodone Bitartrate/Apap 5/325 Tablet PO (22:31)
[2023-04-20] MEDS: Ondansetron ODT 4 MG Tablet PO (22:39)
[2023-04-20 22:57] VITALS: RESP 16
== END 2023-04-20 22:59 | disposition home or self-care (01) ==
PROVIDERS: Emergency Provider Emergency Medicine; PCP Family Medicine; Visit Provider Emergency Medicine
DX: S82.435A Nondisplaced oblique fracture of shaft of left fibula, initial encounter for closed fracture (principal); W01.0XXA Fall on same level from slipping, tripping and stumbling without subsequent striking against object, initial encounter; F32.A Depression, unspecified; F41.9 Anxiety disorder, unspecified; Z79.899 Other long term (current) drug therapy
CPT/HCPCS: 73610; 99284

== ENCOUNTER → 2023-07-28 | Outpatient (CLI) | payer OTHER, SELFPAY ==
--- NOTE | 2023-07-28 15:24 | RAD_ITS ---
STUDY: X-RAY - LEFT ANKLE REASON FOR EXAM: Female, 47 years old. Injury. TECHNIQUE: 3 views of the left ankle. COMPARISON: None. FINDINGS: There is an oblique fracture of the distal fibular shaft. Normal visualized distal tibia. Normal medial malleolus. Normal tibiotalar articulation and ankle mortise. Intact visualized talus and calcaneus. There is a plantar calcaneal spur. The visualized subtalar, talonavicular, calcaneocuboid and tarsal articulations are normal. There is soft tissue swelling overlying the lateral malleolus. RAD/Ankle min 3 Views IMPRESSION: Oblique fracture of the distal fibular shaft. Soft tissue swelling overlying the lateral malleolus. Electronically Signed: Donell Villareal MD at 15:57 EST ,
--- OUTSIDE RECORDS SUMMARY | 2023-07-28 23:38 | XMS RPT_ITS | CCD ---
Author Name Unknown Address [address] [place] [address] [place] [address] Organization [facility] Care Team Providers Care Distribution Supervisor Name Role Phone ROBERT MORENO Attending ARIN Erickson Primary Care Unavailable Allergies Allergy Classification Reported Allergen(s) Allergy Type Date of Onset Reaction(s) Facility (1 source) Seasonal allergy; Translations: [SEASONAL ALLERGIES] Propensity to adverse reactions (disorder) [facility] Repository Results Test Name Value Interpretation Reference Range Facil ity Encounters Encounter Date Encounter Type Care Provider Facility Start: 03-13-2023 End: 03-13-2023 ambulatory ROBERT MORENO Facility:[facility] Payers Date Payer Category Payer Unknown [id number] Progress note 03-13-2023 Note Date & Type Note Facility 03-13-2023 Note HNO ID: [id number] Author: Robert Moreno MD Service: ? Author Type: Physician Type: Progress Notes Filed: 03/13/2023 10:24 AM Note Text: Patient presents with 3 times weekly night sweats, hot flashes are daily. Also notes hip pain each evening and sleep concerns. Not sleeping well due to hip pain. Taking cymbalta daily for pain and is concerned about taking motrin before bed for hip pain. Is scheduled to discuss this as a menopause concern. Menses irregular. Last cycle in November. Cycles have been irregular for 2 or more years. History of hypothyroid and has been off medication. Last time she was here in 2020 she stated her cycles were regular until off thyroid support - did not restart as her PCP stated her labs were normal. These are not available for review and have not been evaluated this year. At that time in 2021 plan was to use combined OCP for irregular cycles and follow up on thyroid. Doesn't remember why she didn't try the OCP. Tired all the time and walking 1-2 miles per day for exercise. Caffeine - 2 to 3 per day Alcohol - 3 per week Reviewed: PMHX PSHx FHx Meds Allergies Review of records: Pap last 2020 - normal, HPV neg A/P: Irregular cycles, cayetano-menopause symptoms TSH, T4, insulin, A1C - to be done Mammogram not done in last 1-2 years- order provided Colon screening not ever done - to discuss with PCP DXA not yet indicated Trial of microgestin OCP to see is symptoms are improved with regular cycles Robert Moreno MD [facility] Summary Purpose Family History No Family History Records Found Advance Directives No Advanced Directives Records Found Additional Source Comments INFORMATION SOURCE (unrecogn ized section and content) FOR RECORDS PERTAINING TO PATIENTS WHO ARE OR HAVE BEEN ENROLLED IN A CHEMICAL DEPENDENCY/SUBSTANCEABUSE PROGRAM, SOME INFORMATION MAY BE OMITTED. This clinical summary was aggregated from multiple sources. Caution should be exercised in using it in the provision of clinical care. This summary normalizes information from multiple sources, and as a consequence, information in this document may materially change the coding, format and clinical context of patient data. In addition, data may be omitted in some cases. CLINICAL DECISIONS SHOULD BE BASED ON THE PRIMARY CLINICAL RECORDS. [employer] provides no warranty or guarantee of the accuracy or completeness of information in this document.
== END | disposition home or self-care (01) ==
PROVIDERS: PCP Family Medicine; Referring Provider Family Medicine; Visit Provider Family Medicine
DX: S99.919A Unspecified injury of unspecified ankle, initial encounter (principal)
CPT/HCPCS: 73610

== ENCOUNTER → 2023-08-26 | Outpatient (CLI) | payer OTHER, SELFPAY ==
[2023-08-26 10:55] LABS: Vitamin D,25 Hydroxy 28.8 ng/mL
[2023-08-26 11:07] LABS: Follicle Stimulating Hormone 65.6 mIU/mL; Free T3 2.6 pg/mL (2.18-3.98); Luteinizing Hormone 39.3 mIU/mL; T4 Free Direct 0.87 ng/dL (0.76-1.46); Thyroid Stim Hormone (TSH) 4.59 uIU/mL (0.358-3.74)
[2023-08-31 00:06] LABS: Estrogen, Total, Serum 166 pg/mL (.)
== END | disposition home or self-care (01) ==
LOC: MTLAB 08:35
PROVIDERS: PCP Family Medicine; Referring Provider Family Medicine; Visit Provider Family Medicine
DX: E55.9 Vitamin D deficiency, unspecified (principal); N95.1 Menopausal and female climacteric states; E03.9 Hypothyroidism, unspecified
CPT/HCPCS: 36415; 82306; 82672; 83001; 83002; 84439; 84443; 84481

== ENCOUNTER 2023-09-04 15:00 | Outpatient (RCR) | payer OTHER, SELFPAY ==
--- NOTE | 2023-06-16 07:17 | HP.PTEVAL ---
Patient's Visit Information Visit Information Visit Information: CHATO LLAMAS is a 47 year old F referred to Physical Therapy by Dr. Angelo Cervantes MD with a diagnosis of L fibular fx. Date of Evaluation: 06/12/23 Physical Therapist: Dominick Colindres DPT Visit Plan Frequency: 2x /Week Duration: 6 Weeks Plan: -Increase tolerance to weightbearing with/with walking boot (still in EARLY stages of bone healing), may begin with weight shifting/pre gait act -Increase L ankle strength and ROM, begin with OKC to pt tolerance but seated BAPS also appropriate -Increase quad/hamstring strength....attempt to combine with active ankle ROM, begin with OKC and progress to CKC -L ankle stretching -Gait (with shoes), gradual tolerance to distances Subjective Subjective: Pt had a fx of L fibular approx. 8 weeks ago and was NWB with walking boot and using knee scooter. Saw physician earlier this week, bone is healing and is using walking boot and WBAT. Pt is able to walk without the boot at home, but tries to keep it under an hour d/t soreness. Ice and elevation have helped with swelling and pain. Pt has some difficulty sleeping, can still feel it but is unsure how to describe the discomfort. Pt reports pain as a 3 or 4/10 with movement, but with prolonged standing is a 5 or 6/10 at its worst. Pt would like to be able to walk, exercise, bike, and navigate stairs at home with less pain. Pt has gone back to full days at work the past two days. Some pins and needles feeling in toes, consistent but improving. Pain Left Ankle: Pain Intensity (Out of 10): 3 Pain Intensity Range: 3 and 6 Objective Objective: ROM (L ankle AROM/PROM): DF 10/12, PF 40/50, EV 20/21, IN 20/25 - tightness in gastroc MMT: L HS 4 (weaker than R), hesitant for L ankle MMT, overall 3+/4- SLS: 0s L, 6s R Gait: antalgic with increase in numbness/tingling sensation (without boot, in socks...slippers or shoes help but tend to rub on sore parts of ankle) Neuro: normal sensation, tingling sensation remains in toes but pt reports improvement from past few weeks Observations: little to no swelling, TTP lateral malleolus/peroneal tendons near area of fx, STS favored RLE to avoid WBing on L Balance/Special Test Scores Lower Extremity Functional Score: 25 Goals Goal 1:: Pt will achieve normal L ankle ROM with 0/10 pain during movement. Goal Time Frame: 2-4 Weeks Goal 2:: Pt will be able to amb. unlimited distances with 0/10 pain with normalized gait pattern. Goal Time Frame: 4-6 Weeks Goal 3:: Pt will ascend/descend stairs with normal reciprocal pattern and 0/10 pain Goal Time Frame: 4-6 Weeks Goal 4:: Pt will be able to stand for 1+ hour with <2/10 pain/soreness Goal Time Frame: 4-6 Weeks Goal 5:: Pt will be able to perform SLS for at least 10s B to indicate improved ankle stability and WBing tolerance Goal Time Frame: 4-6 Weeks Goal 6:: Pt will achieve 4+/5 global strength in L ankle Goal Time Frame: 4-6 Weeks Rehabilitation Potential Physical Therapy Diagnosis: As fibular fx heals, pt is WBAT and demonstrates L ankle weakness, decreased ROM, and gait deviations with residual pain upon palpation/WBing. Rehabilitation Potential: Excellent Anticipated Interventions Patient/Client Instruction: Educate patient on: Condition, Plan of Care and Benefits of Fitness Program For the Purpose of:: To decrease pain, To increase ROM, To improve ability to perform ADL's, To increase tolerance to activity/condition/position, To improve gait and locomotor functions, To improve balance, To improve safety with gait, To reduce risk of recurrence, To prevent re-injury and To improve tolerance to ADL's Therapeutic Exercise to Include: Strength training, Balance training, Gait and locomotor training, Passive ROM and Active ROM For the Purpose of:: To decrease pain, To improve ability to perform ADL's, To increase tolerance to activity/condition/position, To improve gait and locomotor functions, To improve health of tissue, To improve endurance, To improve balance, To reduce risk of recurrence, To prevent re-injury and To improve tolerance to ADL's Manual Therapy Techniques to Include: Passive ROM and Soft tissue mobilization Comment: Gentle to pt tolerance For the Purpose of:: To increase ROM, To decrease soft tissue restriction and To increase flexibility/ROM Cryotherapy (ice pack, ice massage): Yes For the Purpose of:: To decrease pain and To decrease swelling/inflammation Text: Thank you for the opportunity to evaluate your patient. For Medicare and Medicare HMO plans, please review the plan of care and approve it. It will need to be FAXED BACK to us at [phone] for Medicare purposes. For Medicare only, by signing this I certify the plan of care. Please let me know if there are questions or concerns regarding this plan of care. Physician Signature: Date:
--- NOTE | 2023-09-05 08:14 | HP.PTDCSUM ---
Discharge Summary D/C summary: It has been my pleasure to treat CHATO LLAMAS referred by Dr. Angelo Cervantes MD, with the diagnosis of L fibular fx for a total of 18 visit(s). Discharge Date: 09/05/23 Please see the following information for a summary of their discharge status. Subjective Subjective: Pt reports feeling good with decreased pain, some soreness on long days when she walks but is generally able to do what she wishes. Still cautious when walking on uneven grass, but has no pain. Pt sought second opinion for fibular fx, taking some vitamin D3 to help with bone growth. Pain Left Ankle: Pain Intensity (Out of 10): 0 Overall Improvement % Improvement: 90 Objective Objective/Function: ROM: WNL, no pain or stretching MMT: 5/5 strength, no pain GAIT: normalized pattern STAIRS: reciprocal pattern with no UE suppport, stair calf stretch felt good and able to do deficit calf raises with no pain or irritation in ankle PALPATION: no lateral tenderness Pt demo's functional ROM and strength with decreased pain overall. Pt to d/c home with HEP to maintain strengthening, stretching, and main Goals Goal 1:: Pt will achieve normal L ankle ROM with 0/10 pain during movement. Goal Progress: Goal Met Goal 2:: Pt will be able to amb. unlimited distances with 0/10 pain with normalized gait pattern. Goal Progress: Goal Met Goal 3:: Pt will ascend/descend stairs with normal reciprocal pattern and 0/10 pain Goal Progress: Goal Met Goal 4:: Pt will be able to stand for 1+ hour with <2/10 pain/soreness Goal Progress: Goal Met Goal 5:: Pt will be able to perform SLS for at least 10s B to indicate improved ankle stability and WBing tolerance Goal Progress: Goal Met Goal 6:: Pt will achieve 4+/5 global strength in L ankle Plan Plan: Pt to d/c home with indep HEP, has reached all goals and is appropriate to continue strengthening and stretching at home. Pt to call if she has any questions or concerns. D/C Information Discharge Comments: Pt. will be DC to HEP at this point in time. She was treated for her L fibular fx. She is doing well at this point in time. She is to continue with progressive walking and WBing exercises at tolerated. Pt. consents. d/c sentence: If there are questions or concerns regarding this patient's physical therapy, please feel free to call me at [phone]. Thank you for the referral of this patient. Sincerely, Dominick Colindres, DPT Balance/Gait/Functional tests Balance/Special Test Scores Lower Extremity Functional Score: 61 Improvement % Improvement: 90
== END 2023-09-04 19:00 | disposition home or self-care (01) ==
LOC: PT 15:00
PROVIDERS: PCP Family Medicine; Referring Provider Orthopaedic Surgery Sports Medicine; Visit Provider Orthopaedic Surgery Sports Medicine
DX: S82.832D Other fracture of upper and lower end of left fibula, subsequent encounter for closed fracture with routine healing (principal)
CPT/HCPCS: 97110; 97140; 97162; 97530

== ENCOUNTER → 2024-09-30 | Outpatient (CLI) | payer OTHER, SELFPAY ==
--- NOTE | 2024-09-30 17:03 | RAD_ITS ---
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 No fracture or dislocation. Enthesophyte formation plantar surface of the calcaneus. 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 No fracture or dislocation. Enthesophyte formation plantar surface of the calcaneus. Reading Location: [id number]
--- NOTE | 2024-09-30 17:05 | RAD_ITS ---
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 No fracture or dislocation. Enthesophyte formation plantar surface of the calcaneus. 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 No fracture or dislocation. Enthesophyte formation plantar surface of the calcaneus. Reading Location: [id number]
== END | disposition home or self-care (01) ==
LOC: MTRAD 17:02
PROVIDERS: PCP Family Medicine; Referring Provider Family Medicine; Visit Provider Family Medicine
DX: M21.619 Bunion of unspecified foot (principal)
CPT/HCPCS: 73630

== ENCOUNTER 2025-04-09 22:48 | Emergency (ER) | payer OTHER, SELFPAY ==
[2025-04-09 22:49] VITALS: BP 116/82; PULSE 68; RESP 18; TEMP 36.6; O2SAT 99
--- NOTE | 2025-04-09 23:10 | RAD_ITS ---
PROCEDURE: LEFT ANKLE MIN 3 VIEWS 04/09/2025 REASON FOR EXAM: INJURY TECHNIQUE: Procedure Code: RADANK Modality: DX Procedure: ANKLE MIN 3 VIEWS Laterality: Left COMPARISON: 07/28/2023 FINDINGS: Acute nondisplaced transversely oriented fracture at the tip of the distal fibula, which is superimposed on a chronic healed fracture deformity of the lateral malleolus. No additional acute fracture or dislocation is seen. Congruent ankle mortise. Preserved visualized joint spaces. Small plantar calcaneal spur. Soft tissue swelling about the lateral malleolus. RAD/Ankle min 3 Views IMPRESSION: Acute nondisplaced transverse fracture of the distal fibula. Overlying soft ti ssue swelling. Reading Location: [id number]
--- OUTSIDE RECORDS SUMMARY | 2025-04-09 23:31 | XMS RPT_ITS | CCD ---
Author Organization [facility] Care Team Providers Care Vat House Supervisor Name Role Phone Dr. Tremayne Baker Primary Care Provider Dr. Beny Jc Attending Provider Dr. Tremayne Baker Referring Provider Dr. Tremayne Baker Primary Care Provider Dr. Tremayne Baker Referring Provider MD Angelo Cervantes Attending Provider Dr. Beny Jc Attending Provider Tremayne Baker MD Primary Care Provider Dr. Tremayne Baker Primary Care Provider Dr. Tremayne Baker Referring Provider MD Angelo Cervantes Attending Provider Dr. Beny Jc Attending Provider Dr. Tremayne Baker Primary Care Provider Dr. Tremayne Baker Referring Provider MD Angelo Cervantes Attending Provider Dr. Beny Jc Attending Provider Tremayne Baker MD Primary Care Provider Dr. Tremayne Baker MD Primary Care Provider Dr. Tremayne Baker MD Attending Provider Dr. Tremayne Baker MD Referring Provider Tremayne Baker Referring Unavailable Tremayne Baker Attending Unavailable Tremayne Baker Primary Care Unavailable Tremayne Baker MD Primary Care Provider BLANCHE KERN Attending Unavailable ANJELICA HARRIS Referring Unavailable TREMAYNE BAKER Primary Care Unavailable ANJELICA HARRIS Attending Unavailable TREMAYNE BAKER Primary Care Unavailable Allergies Allergy Classification Reported Allergen(s) Allergy Type Date of Onset Reaction(s) Facility (5 sources) cat dander; Translations: [cat dander] Allergy to substance 4 Sinus congestion [facility] (5 sources) Seasonal Allergies: Uncoded; Translations: [Seasonal Allergies: Uncoded] Allergy to substance 4 Sinus congestion [facility] (12 sources) Seasonal allergy; Translations: [SEASONAL ALLERGIES] Allergy to substance 7 Other: See Comments [facility] Medications Current Medications Medication Drug Class(es) Dates Sig (Normalized) Sig (Original) DULoxetine 60 mg delayed release oral capsule (17 sources) Serotonin and Norepinephrine Reuptake Inhibitor Start: 04-20-2023 End: 09-09-2024 take 1 capsule by mouth once daily Duloxetine 60 mg capsule,delayed release(DR/EC) Active 60 mg PO DAILY April 20, 2023 1:00am Comment on above: Take 60 mg by mouth once daily. ergocalciferol 1.25 mg oral capsule (2 sources) Provitamin D2 Compound Start: 12-01-2024 take 1 capsule by mouth every week ergocalciferol 50,000 unit capsule (VITAMIN D2, DRISDOL) Indications: Vitamin D deficiency Take 1 capsule by mouth one time a week. 12 capsule 3 12/01/2024 Active 84 hr estradiol 0.52362 mg/hr transdermal system (3 sources) Estrogen Start: 09-09-2024 estradiol (VIVELLE-DOT) 0.0375 mg/24 hr patch Apply 1 patch as directed two times a week. 24 patch 1 09/09/2024 Active mv-mn/iron fum/FA/omega3,6,9#3 (WOMEN'S MULTI ORAL) (3 sources) take 1 tablet by mouth once daily mv-mn/iron fum/FA/omega3,6,9#3 (WOMEN'S MULTI ORAL) Take 1 tablet by mouth once daily. Active progesterone 200 mg oral capsule (4 sources) Progesterone Start: 09-09-2024 End: 01-03-2025 take 1 capsule by mouth once daily at bedtime progesterone micronized (PROMETRIUM) 200 mg capsule Take 1 capsule by mouth daily at bedtime. 30 capsule 2 01/03/2025 Active valACYclovir 1000 mg oral tablet (2 sources) Herpesvirus Nucleoside Analog DNA Polymerase Inhibitor, Herpes Simplex Virus Nucleoside Analog DNA Polymerase Inhibitor, Herpes Zoster Virus Nucleoside Analog DNA Polymerase Inhibitor Start: 11-15-2023 End: 11-22-2023 take 1 tablet by mouth three times daily valACYclovir (VALTREX) 1 gram tablet Take 1 tablet by mouth three times a day for 7 days. 21 tablet 0 11/15/2023 11/22/2023 Active Completed/Discontinued Medications Medication Drug Class(es) Dates Sig (Normalized) Sig (Original) acetaminophen 325 mg / HYDROcodone bitartrate 5 mg oral tablet (13 sources) Opioid Agonist Start: 04-22-2023 End: 04-25-2023 Hydrocodone-Acetami nophen 5-325 mg tablet Discontinued 1 {tbl} PO Q4H as needed for pain 03 04April 22, 2023 April 24, 2023 1:00am April 25, 2023 1:05am Start: 04-22-2023 End: 04-25-2023 take 1 tablet by mouth every four hours Hydrocodone-Acetaminophen Discontinued 1 TABLET PO Q4H 03 04April 22, 2023 April 25, 2023 1:05am Start: 04-20-2023 End: 04-22-2023 Hydrocodone-Acetaminophen 5- 325 mg tablet Discontinued 1 {tbl} PO EVERY 6 HOURS NEEDED as needed for Pain 03 04April 22, 2023 April 22, 2023 4:53pm Start: 04-20-2023 End: 04-22-2023 take 1 tablet by mouth every six hours as needed Hydrocodone-Acetaminophen Discontinued 1 TABLET PO EVERY 6 HOURS NEEDED 03 04April 22, 2023 April 22, 2023 4:53pm 12 hr buPROPion hydrochloride 150 mg extended release oral tablet (9 sources) Aminoketone Start: 05-22-2020 End: 09-09-2024 take 1 tablet by mouth twice daily buPROPion SR (ZYBAN SR; WELLBUTRIN SR) 150 mg 12 hr tablet Take 150 mg by mouth twice daily. 05/22/2020 09/09/2024 Discontinued (Discontinued by Patient) Comment on above: Take 150 mg by mouth twice daily. Ethinyl Estradiol / Norethindrone (9 sources) Estrogen Start: 03-13-2023 End: 09-09-2024 take 0.05 ug by mouth once Norethindrone Acet-Ethinyl Est (MICROGESTIN 1/20) 1-20 mg-mcg per tablet Take 1 tablet by mouth once daily. 84 tablet 3 03/13/2023 09/09/2024 Discontinued (Other) Start: 03-13-2023 take 0.05 ug by mouth once Nor ethindrone Acet-Ethinyl Est (MICROGESTIN 1/20) 1-20 mg-mcg per tablet Take 1 tablet by mouth once daily. 84 tablet 3 03/13/2023 Active Comment on above: Take 1 tablet by gurwinder th once daily. ondansetron 4 mg disintegrating oral tablet (5 sources) Serotonin-3 Receptor Antagonist Start: 04-20-20 End: 05-12-20 take 2 tablets by mouth every eight hours as needed for nausea Ondansetron 4 mg tablet,disintegratin g Discontinued 8 mg PO EVERY 8 HOURS NEEDED as needed for Nausea April 20, 2023 1:00am May 12, 2023 2:07pm Start: 04-20-2023 End: 05-12-2023 take 8 mg by mouth every eight hours as needed Ondansetron Discontinued 8 MG PO EVERY 8 HOURS NEEDED April 20, 2023 1:00am May 12, 2023 2:07pm Problems Problem Classification Problem Date Documented Date Episodic/Chronic Acquired foot deformities (1 source) Bunion of unspecified foot; Translations: [Bunion of unspecified foot] Onset: 10-07-2024 Episodic Allergic reactions (2 sources) Allergic contact dermatitis due to adhesive; Translations: [Allergic contact dermatitis due to adhesives] Onset: 12-01-2024 12-01-2024 Episodic Fracture of lower limb (5 sources) Closed fracture of distal fibula ; Translations: [Other fracture of upper and lower end of left fibula, initial encounter for closed fracture] 04-20-2023 Episodic Menopausal disorders (5 sources) Disorder associated with menstruation AND/OR menopause; Translations: [Perimenopausal state] Onset: 12-01-2024 09-10-2024 Chronic Menopausal disorders (2 sources) Drug therapy finding; Translations: [Hormone replacement therapy] Onset: 12-01-2024 12-01-2024 Episodic Menstrual disorders (1 source) Irregular periods; Translations: [Irregular menstruation, unspecified] 09-09-2024 Chronic Mood disorders (1 source) Mood swings; Translations: [Emotional lability] 09-09-2024 Episodic Nutritional deficiencies (2 sources) Vitamin D deficiency; Translations: [Vitamin D deficiency, unspecified] Onset: 12-01-2024 12-01-2024 Chronic Other nervous system disorders (1 source) Impaired cognition; Translations: [Other symptoms and signs involving cognitive functions and awareness] 12-01-2024 Episodic Other nervous system disorders (1 source) Other symptoms and signs involving cognitive functions and awareness; Translations: [Brain fog] Onset: 12-01-2024 Episodic Other nutritional; endocrine; and metabolic disorders (1 source) Overweight; Translations: [Overweight] 12-01-2024 Episodic Other nutritional; endocrine; and metabolic disorders (1 source) Overweight; Translations: [Overweight] Onset: 12-01-2024 Episodic Other screening for suspected conditions (not mental disorders or infectious disease) (6 sources) Patient encounter status; Translations: [Encounter for other screening for malignant neoplasm of breast] Onset: 12-01-2024 08-01-2023 Episodic Other skin disorders (1 source) Eruption; Translations: [Rash and other nonspecific skin eruption] 11-15-2023 Episodic Residual codes; unclassified (2 sources) Perimenopausal state 09-10-2024 Episodic Residual codes; unclassified (1 source) FH: Cardiovascular disease; Translations: [Family history of ischemic heart disease and other diseases of the circulatory system] 12-01-2024 Episodic Residual codes; unclassified (1 source) Family history of ischemic heart disease and other diseases of the circulatory system; Translations: [Family history of cardiovascular disease] Onset: 12-01-2024 Episodic Thyroid disorders (2 sources) Acquired hypothyroidism; Translations: [Hypothyroidism, unspecified] Onset: 12-01-2024 12-01-2024 Chronic Results Test Name Value Interpretation Reference Range Facility OVon 12-01-2024 [facility] Office Visit (WELFM) DIAMOND AVINA ([id number]) 1975 F Date Time Provider Department 12/01/24 8:00 AM BLANCHE KERN During your visit today, we recorded the following information about you: Pulse Blood pressure Weight Height 65/minute 118/78 73.9 kg 1.59 m Blanche Kern DO 12/01/2024 9:09 AM Signed [facility] SUBJECTIVE: Diamond Avina is a 49 year old female with a PMH as listed below is a new patient who presents for a wellness consult. Consultation requested by Anjelica Harris MD for an opinion regarding Diamond Avina. My final recommendations will be communicated back to the referring provider by way of shared medical record. Recording using AlephD software for draft documentation of the visit was discussed with the patient/authorized industrial sales representative; all questions welcomed and answered. Patient/authorized industrial sales representative agreed to proceed CC: Diamond Avina is a 49-year-old female with a history of perimenopause, presenting for evaluation of perimenopausal symptoms and cognitive concerns. HPI: Perimenopause: - Symptoms began around January-March 2024, with significant worsening by August. - Initially experienced severe mood swings, insomnia, and frequent crying episodes triggered by minor events. - Started on estradiol and progesterone in August, leading to improved sleep and mood, and reduced hot flashes. - Reports allergic reaction to the adhesive on the hormone patch, causing redness and occasional pruritus. - Last menstrual period in October, which was delayed by 6 months; prior to that, menses occurred every 3 months. - Family history of early perimenopause in mother, who underwent a hysterectomy at age 42 due to prolonged bleeding. Cognitive Concerns: - Reports brain fog, memory issues, and difficulty focusing. - Symptoms have improved since starting hormone therapy but are still present. - No history of head injuries, CVA, or TIA. - Family history of Alzheimer's disease in maternal grandmother, who began showing symptoms in her late 60s. Anxiety and Depression: - History of anxiety and seasonal affective symptoms, managed with Cymbalta. - Reports improvement in mood and reduction in crying episodes since starting hormone therapy. - Anxiety levels have remained consistent and have not worsened with hormonal changes. Hypothyroidism: - History of hypothyroidism, previously managed with medication. - Last thyroid function tests were normal, but it has been a couple of years since the last evaluation. Lifestyle: - Diet consists mainly of home-cooked meals, with occasional dining out or fast food consumption. - Drinks 3-4 glasses of water per day and consumes 2-3 cups of caffeinated tea daily. - Alcohol consumption averages one drink per day, with no more than two drinks on any given day. - Engages in daily walking for exercise, approximately 15-20 minutes twice a day. - Sleeps 8 hours per night and feels well-rested. - Stress levels are moderate, with coping mechanisms including baths and deep breathing exercises. - Takes a multivitamin ([employer]'s Own) and a high-dose vitamin D supplement (50,000 IU once a week) since June 2023. - Occasional social smoking (approximately 2 cigarettes per year) and occasional recreational marijuana use (edibles). - Lives in [place] with and two children, one in college and one living in an apartment. 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 PERTINENT MEDICAL AND FAMILY HISTORY Menopausal status: perimenopause, LMP October 2024 (6m after last period) HRT: estradiol patch, progesterone 200 mg qhs FHx ADRD: MaGM (onset age 65-68) Patient-Entered Questionnaires Higher Score is Better 11/30/2024 [facility] Physical Function PROMIS Physical Function T-Score 54 (within normal limits) 11/30/2024 [facility] Satisfaction with Social Roles PROMIS - Satisfaction with Participation in Social Roles T-Score 48 (Average) 11/30/2024 [facility] NEUROQOL COGNITIVE T-SCORE PROMIS Neuroqol Cognitive T-Score 46 (within normal limits) Lower Score is Better 11/30/2024 [facility] Anxiety PROMIS Anxiety T-Score 56 (mild) 11/30/2024 [facility] Sleep Disturbance PROMIS Sleep Disturbance T-Score 44 (within normal limits) 11/30/2024 [facility] Depression PROMIS Depression T-Score 51 (within normal limits) 11/30/2024 [facility] Pain Interference PROMIS Pain Interference T-Score (range: 10 - 90) 47 (within normal limits) 11/30/2024 [facility] Fatigue PROMIS Fatigue T-Score 53 (within normal limits) DIET She cooks at home and eats out 2x/month. Fast food: 1x/month Water: 3-4 glasses/day Alcohol: average 1 drink/day, no more than 2 per day Coffee: none Tea: 2-3 cups black tea with honey EXERCISE Walks dog for 15-20 (more content not included)... Normal [facility] Foot min 3 Viewson 5 Foot min [address] [facility] Imaging Services [address] [place], [place] [id number] [phone] Foot min 3 Views MR#: [id number] Acct: [id number] Name: DIAMOND AVINA Rep #: [id number] : 1975 F 48 From: Houston Bell MD PCP: Dr. 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 No fracture or dislocation. Enthesophyte formation plantar surface of the calcaneus. RAD/Foot min 3 Views IMPRESSION: Right foot: Hallux valgus metatarsus varus deformity with bunion appears hizx-kgqisjx-rypo-ri ght. No fracture or dislocation. Enthesophyte formation plantar surface of the calcaneus. Reading Location: [facility] CC: Dr. Tremayne Baker MD Wildlife Biology Internship: Signed Normal [facility] Foot min [address] [facility] Imaging Services [address] [place], [place] [id number] ([phone] Foot min 3 Views MR#: [id number] Acct: [id number] Name: DIAMOND AVINA Rep #: [id number] : 1975 F 48 From: Houston Bell MD PCP: Dr. Tremayne Baker MD Status: REG CLI Study: Foot min 3 Views Date of Exam: 09/30/24 Exam# [id number] Ordering Dr: Tremayne Baker MD EXAM: Foot minimum three views CLINICAL HISTORY: Bunion, pain COMPARISON: Right foot TECHNIQUE: Three views left foot FINDINGS: Left foot: Hallux valgus metatarsus varus deformity with bunion appears dxdh-[id number]-jmpg-ri ght. No fracture or dislocation. Enthesophyte formation plantar surface of the calcaneus. 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 No fracture or dislocation. Enthesophyte formation plantar surface of the calcaneus. Reading Location: [facility] CC: Dr. Tremayne Baker MD Wildlife Biology Internship: Signed [facility] 09-09-2024 [facility] Office Visit (OBGMEM) DIAMOND AVINA ([id number]) 1975 F Date Time Provider Department 09/09/24 3:15 PM ANJELICA HARRIS OBJOELLEEM During your visit today, we recorded the following information about you: Blood pressure Weight Last Period 112/78 75.5 kg 05/11/24 Anjelica Harris MD 09/10/2024 9:14 PM Signed CC: perimenopause symptoms Diamond Avina is a 48 year old female who presents for problem visit menopause symptoms. HPI: The patient is a 48-year-old female presenting for evaluation of worsening mood swings, hot flashes, and night sweats. The patient reports a significant increase in mood swings over the past year, with symptoms intensifying in the last few months. She describes frequent episodes of uncontrolled sobbing, including during a recent vacation. She feels as though she is experiencing constant PMS, stating, "I feel like I'm having the week before my period all the time." She notes irritability, often biting her 's head off." She also reports increased forgetfulness, frequently asking her purpob-kc-vsc with dementia to remind her of what she was saying. She has been taking Cymbalta 60 mg daily for 2-3 years, which has helped with hip pain but has not provided relief for her mood symptoms. She previously tried Wellbutrin without noticeable benefit. The patient experiences severe hot flashes and night sweats, which had previously resolved but have returned. These symptoms disrupt her sleep, causing her to frequently adjust her covers. She is able to return to sleep after episodes but notes that her sleep quality varies, with some nights being better than others. Her menstrual periods have become irregular; the last period occurred 4 months ago and lasted a few days, with the previous one occurring 3 months prior. She has not gone a full year without a period. She describes her periods as "all over the place," whereas they were previously very regular. She has not tried any treatments for her symptoms and expresses a desire to avoid control pills. She is open to hormonal management for perimenopausal symptoms, particularly to address mood instability. She prioritizes mood stabilization over the management of hot flashes and night sweats, stating she can handle the latter but not the former. She denies personal or family history of blood clots, breast cancer, uterine cancer, or ovarian cancer. She is currently taking Women's One A Day multivitamin. OB History Gravida4 Para2 Term2 Preterm0 AB2 Living2 SAB1 IAB1 Ectopic0 Multiple0 Live Births2 Comment: TAB x 1, SAB x 1 x 2 - largest baby was [id number] Stores Assistant History LMP: 05/11/2024 (Approximate), Having periods Age at Menarche: Age at First : Age at Menopause: Stores Assistant History Comments: Sexual Activity: Yes; Male Contraception: No contraception data on record PAST MEDICAL HISTORY Diagnosis Date Anxiety state Arthritis Hypothyroid Seasonal allergies PAST SURGICAL HISTORY Procedure Laterality Date KNEE RIGHT OP SURGERY 2009 OTHER L3-4 discectomy REPAIR OF NASAL SEPTUM 2010 TONSILLECTOMY AND ADENOIDECTOMY HX FAMILY HISTORY Problem Relation Age of Onset Breast Cancer No Family History Ovarian cancer No Family History Uterine Cancer No Family History Social History Tobacco Use Smoking status: Never Smokeless tobacco: Never Vaping Use Vaping status: Never Used Substance Use Topics Drug use: Never Current Outpatient Medications Medication Sig mv-mn/iron fum/FA/omega3,6,9#3 (WOMEN'S MULTI ORAL) Take 1 tablet by mouth once daily. DULoxetine (CYMBALTA) 60 mg capsule Take 60 mg by mouth once daily. progesterone micronized (PROMETRIUM) 200 mg capsule Take 1 capsule by mouth daily at bedtime. estradiol (VIVELLE-DOT) 0.0375 mg/24 hr patch Apply 1 patch as directed two times a week. No current facility-administere d medications for this visit. Allergies As of Date: 09/09/2024 Allergen Noted Reaction SEASONAL ALLERGIES 11/08/2016 Other: See Comments Fully Assessed 09/09/2024 REVIEW OF SYSTEMS Constitutional: (+) night sweats, (+) sleep disturbance Genitourinary: (+) irregular menses Neurological: (+) forgetfulness Psychiatric: (+) mood swings, (+) crying episodes, (+) emotional lability Endocrine: (+) hot flashes SENSITIVE EXAM: Sensitive exam not performed. EXAM: BP 112/78 Wt 166 lb 7.2 oz (75.5kg) LMP 05/11/2024 GENERAL: pleasant, female in no apparent distress 1. Perimenopause (N95.1) Menopausal and perimenopausal disorder (N95.9) Experiencing significant mood swings, hot flashes, and night sweats. Last menstrual period was four months ago, with irregular cycles noted. Symptoms have worsened over the past year. Currently on Cymbalta 60 mg daily for the past 2-3 years, previously tried Wellbutrin without noticeable effect. - Discussed p (more content not included)... Normal [facility] No Panel InformationOrdered By: Tremayne Baker on 08-26-2023 Follicle Stimulating Hormone 65.6 mIU/mL [facility] Comment on above: NORMAL REFERENCE RAN GES FEMALE FOLLICULAR 2.3 - 12.6 mIU/mL MID-CYCLE PEAK 5.2 - 17.5 mIU/mL LUTEAL 1.7 - 12.9 mIU/mL POST-MENOPAUSAL ON MHT 5.9 - 72.8 mIU/mL NOT ON MHT 12.7 - 132.2 mlU/mL MALE 0.7 - 10.8 mIU/mL Free Triiodothyronine (T3) pg/dL 2.6 pg/mL 2.18-3.98 [facility] Luteinizing Hormone 39.3 mIU/mL [facility] Comment on above: NORMAL REFERENCE RAN GES FEMALE FOLLICULAR 1.9 - 26.2 mIU/mL MID-CYCLE PEAK 22.8 - 76.1 mIU/mL LUTEAL 0.6 - 16.6 mIU/mL POST-MENOPAUSAL ON MHT 1.1 - 52.4 mIU/mL NOT ON MHT 8.6 - 61.8 mIU/mL MALE 1.2 - 10.6 mIU/mL Vitamin D 25-Hydroxy 28.8 ng/mL [facility] Comment on above: Vitamin D 25(OH) Sta tus Range Deficiency <20 ng/mL (50nmol/L) Insufficiency 20 - 30 ng/mL (50 - 75 nmol/L) Sufficiency 30 - 100 ng/mL (75 - 250 nmol/L) Toxicity >100 ng/mL (>250 nmol/L) Serum or plasma estrogen amarilis surement (mass/volume)Ordered By: Tremayne Baker on 08-26-2023 Estrogen [Mass/Vol] 166 pg/mL . [facility] Comment on above: Prepubertal < 40 Fem paul Cycle: 1-10 Days 16 - 328 11-20 Days 34 - 501 21-30 Days 48 - 350 Post-Menopausal 40 - 244Performed at: [facility] [id number] Director: Tiffany Still MD, Phone: [phone] Serum or plasma thyroid stim ulating hormone (TSH) measurement (units/volume)Ordered By: Tremayne Baker on 08-26-2023 TSH Qn 4.59 uIU/mL 0.358-3.74 [facility] Thin prep Papanicolaou smear with manual screeningOrdered By: Tremayne Baker on 08-26-2023 Thin prep Papanicolaou smear with manual screening 0.87 ng/dL 0.76-1.46 [facility] DBT Breast - right diagnosti c for implanton 08-20-2023 [facility] US Breast - right limitedon 08-20-2023 [facility] Clostridium difficile detect ion by polymerase chain reactionOrdered By: Tremayne Baker on 02-14-2023 C. difficile DNA MEIR+probe Ql (Unsp spec) [facility] Stool enteric pathogen panel by probe and target amplification methodOrdered By: Tremayne Baker on 02-14-2023 Gastrointestinal pathogens panel MEIR+probe (Stl) [facility] Absolute lymphocyte countOrd ered By: Dr. Baker on 11-04-2022 Lymphocytes Auto (Unsp spec) [#/Vol] 2.85 10*3/uL 0.83-4.51 [facility] Basophil percentageOrdered B y: Dr. Baker on 11-04-2022 Basophils/100 WBC (Bld) 0.7 % 0-1 [facility] Chloride [Moles/Vol] 108 mmol/L 98-107 [facility] Eosinophils/100 WBC (Bld) 4.2 % 0-5 [facility] Glucose [Mass/Vol] 77 mg/dL 74-106 [facility] Neutrophils (Bld) [#/Vol] 6.2 10*3/uL 2.0-7.7 [facility] Neutrophils/100 WBC (Bld) 57.1 % 47-70 [facility] Potassium [Moles/Vol] 3.7 mmol/L 3.5-5.1 [facility] Sodium [Moles/Vol] 139 mmol/L 136-145 [facility] WBC (Bld) [#/Vol] 10.9 10*3/uL 4.4-11.0 [facility] Blood erythrocytes count (nu mber/volume)Ordered By: Dr. Baker on 11-04-2022 RBC (Bld) [#/Vol] 4.37 10*6/uL 4.2-5.4 [facility] Blood hemoglobin measurement (mass/volume)Ordered By: Dr. Baker on 11-04-2022 Hemoglobin (Bld) [Mass/Vol] 12.9 g/dL 12.0-15.0 [facility] Blood lymphocytes/100 leukoc ytesOrdered By: Dr. Baker on 11-04-2022 Lymphocytes/100 WBC (Bld) 26.2 % 19-41 [facility] Blood monocytes/100 leukocyt esOrdered By: Dr. Baker on 11-04-2022 Monocytes/100 WBC (Bld) 11.0 % 0-10 [facility] Blood platelet mean volumeOr dered By: Dr. Baker on 11-04-2022 Platelet mean volume (Bld) [Entitic vol] 11.5 fL 6.2-12.0 [facility] Determination of erythrocyte mean corpuscular volume (MCV)Ordered By: Dr. Baker on 11-04-2022 MCV (RBC) [Entitic vol] 94.1 fL 81-99 [facility] Hematocrit Auto (Bld) [Volum e fraction]Ordered By: Dr. Baker on 11-04-2022 Hematocrit (Bld) [Volume fraction] 41.1 % 37-47 [facility] Laboratory - Chemistry and C hemistry - challengeOrdered By: Dr. Baker on 11-04-2022 CO2 [Moles/Vol] 25.0 mmol/L 21.0-32.0 [facility] Magnesium [Mass/Vol] 2.3 mg/dL 1.6-2.6 [facility] Urea nitrogen/Creatinine [Mass ratio] 13.2 mg/mg 10-20 [facility] Laboratory - Hematology and Cell countsOrdered By: Dr. Baker on 11-04-2022 Erythrocyte distribution width (RBC) [Entitic vol] 47.4 fL 35.1-43.9 [facility] Erythrocyte distribution width (RBC) [Ratio] 13.8 % 11.6-14.6 [facility] Immature granulocytes/100 WBC (Bld) 0.800 % 0.0-0.9 [facility] Comment on above: IG% - Immature Granu locytes (promyelocytes, myelocytes and metamyelocytes) > 1% indicates that a LEFT SHIFT is Present. MCH (RBC) [Entitic mass] 29.5 pg 27.0-32.0 [facility] Nucleated RBC/100 WBC (Bld) [Ratio] 0 % 0-5 [facility] MCHC Auto (RBC) [Mass/Vol]Or dered By: Dr. Baker on 11-04-2022 MCHC (RBC) [Mass/Vol] 31.4 g/dL 32-36 [facility] No Panel InformationOrdered By: Dr. Baker on 06-05-2023 Estimated GFR (MDRD) Amer 94 mL/min >60 [facility] Comment on above: GFR Calc Estimated GFR (MDRD) Non-Af Amer 78 mL/min >60 [facility] Comment on above: Non- GFR Calc Platelets bldOrdered By: Dr. Baker on 11-04-2022 Platelets (Bld) [#/Vol] 223 10*3/uL 150-450 [facility] Serum or plasma calcium ana paula urement (mass/volume)Ordered By: Dr. Baker on 11-04-2022 Calcium [Mass/Vol] 9.3 mg/dL 8.5-10.1 [facility] Serum or plasma creatinine m easurement (mass/volume)Ordered By: Dr. Baker on 11-04-2022 Creatinine [Mass/Vol] 0.83 mg/dL 0.55-1.02 [facility] Comment on above: The validity of the calculated GFR & GFRAA in patients over 70 years has not been determined. Clinical correlation is essential. Serum or plasma urea nitroge n measurement (mass/volume)Ordered By: Dr. Baker on 11-04-2022 Urea nitrogen [Mass/Vol] 11 mg/dL 7-18 [facility] Thin prep Papanicolaou smear with manual screeningOrdered By: Dr. Baker on 11-04-2022 Thin prep Papanicolaou smear with manual screening 6 5-15 [facility] Basophil percentageon 2021 Bilirubin [Mass/Vol] 0.40 mg/dL 0.20-1.00 [facility] Work Phone: Comment on above: For patients on eltr ombopag therapy, use of Dimension Spangler TBIL is not recommended. Chloride [Moles/Vol] 106 mmol/L 98-107 [facility] Work Phone: Cholesterol [Mass/Vol] 188 mg/dL <200 [facility] Work Phone: Comment on above: <200 mg/dL Desirable 200-240 mg/dL Borderline >240 mg/dL High Risk Glucose [Mass/Vol] 80 mg/dL 74-106 [facility] Work Phone: Potassium [Moles/Vol] 3.8 mmol/L 3.5-5.1 [facility] Work Phone: Protein [Mass/Vol] 7.3 g/dL 6.4-8.2 [facility] Work Phone: Sodium [Moles/Vol] 138 mmol/L 136-145 [facility] Work Phone: Triglyceride [Mass/Vol] 119 mg/dL [facility] Work Phone: Comment on above: The drugs N-Acetylcy steine and Metamizole may falsely depress this assay.Serum Triglycerides Reference Interval Normal <150 mg/dL Borderline high 150 - 199 mg/dL High 200 - 499 mg/dL Very High > or = 500 mg/dL Laboratory - Chemistry and C hemistry - challengeon 09-21-2021 ALP [Catalytic activity/Vol] 102 U/L 45-117 [facility] Work Phone: ALT [Catalytic activity/Vol] 27 U/L 13-56 [facility] Work Phone: CO2 [Moles/Vol] 27.0 mmol/L 21.0-32.0 [facility] Work Phone: Free T4 [Mass/Vol] 0.95 ng/dL 0.76-1.46 [facility] Work Phone: Globulin (S) [Mass/Vol] 3.4 g/dL 2.2-4.2 [facility] Work Phone: Urea nitrogen/Creatinine [Mass ratio] 11.5 mg/mg 10-20 [facility] Work Phone: No Panel Informationon 09-21 Estimated GFR (MDRD) Amer 102 mL/min >60 [facility] Work Phone: Comment on above: GFR Calc Estimated GFR (MDRD) Non-Af Amer 84 mL/min >60 [facility] Work Phone: Comment on above: Non- GFR Calc Free Triiodothyronine (T3) pg/dL 2.9 pg/mL 2.18-3.98 [facility] Work Phone: Thyroid Stimulating Hormone (TSH) 2.70 uIU/mL 0.358-3.74 [facility] Work Phone: Serum or plasma albumin ana paula urement (mass/volume)on 09-21-2021 Albumin [Mass/Vol] 3.9 g/dL 3.2-5.0 [facility] Work Phone: Serum or plasma albumin/glob ulin mass ratioon 09-21-2021 Albumin/Globulin [Mass ratio] 1.1 {ratio} 0.9-2.4 [facility] Work Phone: Serum or plasma calcium ana paula urement (mass/volume)on 09-21-2021 Calcium [Mass/Vol] 8.6 mg/dL 8.5-10.1 [facility] Work Phone: Serum or plasma cholesterol in HDL measurement (mass/volume)on 09-21-2021 Cholesterol in HDL [Mass/Vol] 67 mg/dL [facility] Work Phone: Comment on above: The drugs N-Acetylcy steine and Metamizole may falsely depress this assay. Reference Range HDL <40 mg/dL Low HDL Cholesterol HDL >or= 60 mg/dL High HDL Cholesterol Serum or plasma cholesterol in VLDL measurement (mass/volume)on 09-21-2021 Cholesterol in VLDL [Mass/Vol] 24 mg/dL 5-40 [facility] Work Phone: Serum or plasma creatinine m easurement (mass/volume)on 09-21-2021 Creatinine [Mass/Vol] 0.78 mg/dL 0.55-1.02 [facility] Work Phone: Comment on above: The validity of the calculated GFR & GFRAA in patients over 70 years has not been determined. Clinical correlation is essential. Serum or plasma low density lipoprotein (LDL) cholesterol measurement (mass/volume)on 09-21-2021 Cholesterol in LDL [Mass/Vol] 97 mg/dL 0-130 [facility] Work Phone: Serum or plasma urea nitroge n measurement (mass/volume)on 09-21-2021 Urea nitrogen [Mass/Vol] 9 mg/dL 7-18 [facility] Work Phone: Thin prep Papanicolaou smear with manual screeningon 09-21-2021 Thin prep Papanicolaou smear with manual screening 18 U/L 15-37 [facility] Work Phone: Thin prep Papanicolaou smear with manual screening 5 5-15 [facility] Work Phone: Vital Signs Date Time Vital Sign Value Performing Clinician Francois naylor 12-01-2024 08:00-0400 Body height 159 cm Blanche Overton DO Work Phone: [facility] 12-01-2024 08:00-0400 Body mass index (BMI) [Ratio] 29.23 kg/m2 Blanche Overton DO Work Phone: [facility] 12-01-2024 08:00-0400 Body weight 73.9 kg Blanche Overton DO Work Phone: [facility] 12-01-2024 08:00-0400 Diastolic blood pressure 78 mm[Hg] Blanche Overton DO Work Phone: [facility] 12-01-2024 08:00-0400 Heart rate 65 /min Blanche Overton DO Work Phone: [facility] 12-01-2024 08:00-0400 SaO2% (BldA) [Mass fraction] 100 % Blanche Overton DO Work Phone: [facility] 12-01-2024 08:00-0400 Systolic blood pressure 118 mm[Hg] Blanche Overton DO Work Phone: [facility] 09-09-2024 15:20-0400 Body weight 75.5 kg Anjelica Harris MD Work Phone: [facility] 09-09-2024 15:20-0400 Diastolic blood pressure 78 mm[Hg] Anjelica Harris MD Work Phone: [facility] 09-09-2024 15:20-0400 Systolic blood pressure 112 mm[Hg] Anjelica Harris MD Work Phone: [facility] 11-15-2023 08:26-0400 Body temperature 97.7 [degF] Krislyn Aberegg PA Work Phone: [facility] 11-15-2023 08:26-0400 Body weight 87 kg Krislyn Aberegg PA Work Phone: [facility] 11-15-2023 08:26-0400 Diastolic blood pressure 55 mm[Hg] Krislyn Aberegg PA Work Phone: [facility] 11-15-2023 08:26-0400 Heart rate 82 /min Krislyn Aberegg PA Work Phone: [facility] 11-15-2023 08:26-0400 Respiratory rate 18 /min Krislyn Aberegg PA Work Phone: [facility] 11-15-2023 08:26-0400 SaO2% (BldA) [Mass fraction] 100 % Krislyn Aberegg PA Work Phone: [facility] 11-15-2023 08:26-0400 Systolic blood pressure 97 mm[Hg] Krislyn Aberegg PA Work Phone: [facility] 04-21-2023 09:24-0500 Body height 157.[address] Tremayne Baker Work Phone: [facility] 04-21-2023 09:24-0500 Body mass index (BMI) [Ratio] 32 kg/m2 Dr. Tremayne Baker Work Phone: [facility] 04-21-2023 09:24-0500 Body weight 79.[address] Tremayne Baker Work Phone: [facility] 04-20-2023 22:57-0500 Respiratory rate 16 /min [facility] 04-20-2023 21:36-0500 Body mass index (BMI) [Ratio] 35.4 kg/m2 [facility] 04-20-2023 21:36-0500 Body weight [address] [facility] 04-20-2023 21:00-0500 Body height 157.[address] [facility] 04-20-2023 21:00-0500 Body temperature 97 [degF] [facility] 04-20-2023 21:00-0500 Diastolic blood pressure 91 mm[Hg] [facility] 04-20-2023 21:00-0500 Heart rate 62 /min [facility] 04-20-2023 21:00-0500 SaO2% (BldA) [Mass fraction] 100 % [facility] 04-20-2023 21:00-0500 Systolic blood pressure 146 mm[Hg] [facility] Encounters Encounter Date Encounter Type Care Provider Facility Start: 01-03-2025 End: 01-03-2025 Refill Anjelica Harris MD Work Phone: Obstetrics/Gynecology Comment on above: Refill Request Start: 12-01-2024 End: 12-01-2024 Patient encounter procedure Blanche Kern DO Work Phone: [facility] Comment on above: Perimenopause (Prima ry Dx); On hormone replacement therapy; Brain fog; Acquired hypothyroidism; Overweight; Vitamin D deficiency; Family history of cardiovascular disease; Lipid screening; Allergic contact dermatitis due to adhesives Start: 12-01-2024 End: 12-01-2024 ambulatory BLANCHE KERN Facility:[facility] Start: 09-30-2024 End: 09-30-[address] Tremayne Baker MD Work Phone: [facility] Work Phone: Start: 09-30-2024 End: 09-30-[address] Tremayne Baker MD -Radiology, [place] Work Phone: Start: 09-30-2024 End: 09-30-2024 ambulatory Tremayne Baker Facility:[facility] Start: 09-09-2024 End: 09-09-2024 ambulatory ANJELICA HARRIS Facility:[facility] Start: 09-09-2024 End: 09-09-2024 Office outpatient visit 40 minutes Anjelica Harris MD Work Phone: Obstetrics/Gynecology Comment on above: Perimenopause (Prima ry Dx); Irregular menstrual cycle; Labile mood; Menopausal and perimenopausal disorder Start: 11-16-2023 Telephone encounter Carlos MITTAL Work Phone: [facility] Comment on above: Results Start: 11-15-2023 End: 11-15-2023 Patient encounter procedure Carlos MITTAL Work Phone: [facility] Comment on above: Rash (Primary Dx) Start: 09-04-2023 End: 09-04-[address] Tremayne Baker Work Phone: [facility] Work Phone: Start: 09-04-2023 End: 09-04-[address] Tremayne Baker Work Phone: [facility]-Physical Therapy Work Phone: Start: 08-26-2023 End: 08-26-[address] Tremayne Baker Work Phone: [facility] Work Phone: Start: 08-26-2023 End: 08-26-[address] Tremayne Baker Work Phone: [facility] Work Phone: Start: 08-25-[address] Tremayne Baker Work Phone: [facility]-Physical Therapy Work Phone: Start: 08-20-2023 End: 08-20-2023 Subsequent hospital visit by physician Diagnostic Mammo [facility] Comment on above: Abnormal mammogram [ R92.8] Start: 08-05-2023 Documentation procedure Mammog reji Coordinator [facility] Start: 08-05-2023 Letter encounter Mammography Coordinator [facility] Start: 08-05-2023 Orders Only Cristina harris PA-C Work Phone: Obstetrics/Gynecology Comment on above: Abnormal mammogram ( Primary Dx) Start: 08-03-2023 Documentation procedure Mammog reji Coordinator [facility] Start: 08-03-2023 Letter encounter Mammography Coordinator [facility] Start: 08-01-2023 End: 08-01-2023 Subsequent hospital visit by physician Screen Mammo [facility] Comment on above: Breast screening [Z1 2.39] Start: 07-31-[address] Tremayne Baker Work Phone: [facility]-Physical Therapy Work Phone: Start: 07-28-2023 End: 07-28-[address] Tremayne Baker Work Phone: [facility] Work Phone: Start: 07-28-2023 End: 07-28-[address] Tremayne Baker [facility] Start: 06-09-2023 End: 06-09-[address] Tremayne Baker Work Phone: [facility] Work Phone: Start: 05-12-2023 End: 05-12-[address] Tremayne Baker Work Phone: [facility] Work Phone: Start: 04-21-2023 End: 04-21-[address] Tremayne Baker Work Phone: [facility] Work Phone: Start: 04-20-2023 End: 04-20-2023 Emergency department patient visit [facility]-Emergency Department Work Phone: Start: 02-14-2023 End: 02-14-[address] Tremayne Baker Work Phone: [facility] Work Phone: Start: 02-14-2023 End: 02-14-[address] Tremayne Baker Work Phone: [facility] Work Phone: Start: 11-15-2022 Non-patient / Non-visit Dr. Paot Baker Work Phone: [facility] Start: 11-15-2022 End: 11-15-[address] Tremayne Baker Work Phone: [facility] Work Phone: Start: 11-15-2022 End: 11-15-[address] Tremayne Baker Work Phone: [facility]-Cardiovascul ar Services Start: 11-04-2022 End: 11-04-[address] Tremayne Baker Work Phone: [facility] Start: 09-21-2021 End: 09-21-2021 Patient encounter procedure [facility] Procedures Date Procedure Procedure Detail Performing Clinician Start: 09-30-2024 End: 09-30-2024 X-ray of foot, three or more views Dr. Tremayne Baker MD Work Phone: Start: 08-20-2023 Us breast uni real t haylie with image limited Cristina Yang PA-C Work Phone: Start: 08-20-2023 Digital breast tomosynthesis unilateral Cristina Ynag PA-C Work Phone: Start: 07-28-[address] Liseth Baker Work Phone: Start: 06-09-[address] Liseth Baker Work Phone: Start: 05-12-[address] Liseth Baker Work Phone: Start: 04-21-[address] Liseth Baker Work Phone: Start: 04-20-2023 Radiography of ankle Start: 02-14-[address] Tremayne Baker Work Phone: Start: 02-14-[address] Tremayne Baker Work Phone: Plan of Treatment Date Care Activity Detail Author Start: 03-28-2026 Screening for malign ant neoplasm of cervix [facility] Start: 05-04-2025 End: 05-04-2025 Patient encounter procedure 05/04/2025 9:30 AM EST Office Visit [facility] [address] [id number] Darrion Randhawa MD [address] [id number] Perimenopause [N95.1]; Menopausal and perimenopausal disorder [N95.9] [facility] Comment on above: Perimenopause [N95.1 ]; Menopausal and perimenopausal disorder [N95.9] Start: 01-31-2025 Influenza vaccination Influenza Vacc ine (#1) [facility] Start: 12-01-2024 End: 03-02-2025 25-hydroxyvitamin D3 [Mass/volume] in Serum or Plasma VITAMIN D 25 HYDROXY Lab Routine Vitamin D deficiency Expected: 12/01/2024, Expires: 03/02/2025 [facility] Comment on above: Expected: 12/01/2024 , Expires: 03/02/2025 Start: 12-01-2024 End: 03-02-2025 CBC panel - Blood by Automated count COMPLETE BLOOD COUNT Lab Routine Perimenopause Brain fog Overweight Expected: 12/01/2024, Expires: 03/02/2025 [facility] Comment on above: Expected: 12/01/2024 , Expires: 03/02/2025 Start: 12-01-2024 End: 03-02-2025 Cobalamin (Vitamin B12) [Mass/volume] in Serum or Plasma VITAMIN B12 Lab Routine Brain fog Expected: 12/01/2024, Expires: 03/02/2025 [facility] Work Phone: Comment on above: Expected: 12/01/2024 , Expires: 03/02/2025 Start: 12-01-2024 End: 03-02-2025 Comprehensive metabolic 2000 panel - Serum or Plasma COMPREHENSIVE METABOLIC PANEL Lab Routine Perimenopause Brain fog Overweight Expected: 12/01/2024, Expires: 03/02/2025 [facility] Comment on above: Expected: 12/01/2024 , Expires: 03/02/2025 Start: 12-01-2024 End: 03-02-2025 Lipid 1996 panel - Serum or Plasma LIPID PANEL, FASTING Lab Routine Lipid screening Expected: 12/01/2024, Expires: 03/02/2025 [facility] Comment on above: Expected: 12/01/2024 , Expires: 03/02/2025 Start: 12-01-2024 End: 03-02-2025 OMEGACHECK OMEGACHECK Lab Routine Perimenopause Brain fog Overweight Expected: 12/01/2024, Expires: 03/02/2025 [facility] Comment on above: Expected: 12/01/2024 , Expires: 03/02/2025 Start: 12-01-2024 End: 03-02-2025 Thyrotropin [Units/volume] in Serum or Plasma THYROID STIMULATING HORMONE Lab Routine Brain fog Acquired hypothyroidism Expected: 12/01/2024, Expires: 03/02/2025 [facility] Comment on above: Expected: 12/01/2024 , Expires: 03/02/2025 Start: 2024 Pneumococcal Vaccine : 50+ (1 of 1 - PCV) Pneumococcal Vaccine: 50+ (1 of 1 - PCV) [facility] Start: 2024 Shingrix Vaccine (1 of 2) Shingrix Vaccine (1 of 2) [facility] Start: 07-31-2024 Screening for malign ant neoplasm of breast Mammogram Screening [facility] Start: 02-01-2024 Covid-19 Vaccine ( season) Covid-19 Vaccine ( season) [facility] Start: 02-01-2024 Influenza vaccination C [facility] Start: 11-15-2023 End: 02-14-2024 Herpes simplex virus+Varicella zoster virus DNA [Presence] in Unspecified specimen by MEIR with probe detection HSV1,2/VZV NAAT LESION Lab Routine Rash Expected: 11/15/2023, Expires: 02/14/2024 [facility] Work Phone: Comment on above: Expected: 11/15/2023 , Expires: 02/14/2024 Start: 08-01-2023 Urine microalbumin profile DTaP,Tdap,Td Vaccine (3 - Td or Tdap) [facility] Start: 06-09-2023 Patient referral [facility] Work Phone: Start: 06-02-2023 Behavioral Health Screening Behavioral Health Screening [facility] Start: 06-02-2023 Depression Assessment Depression Ass essment [facility] Start: 04-20-2023 [facility] Start: 01-31-2023 Covid-19 Vaccine ( season) Covid-19 Vaccine () [facility] Start: 01-31-2023 Influenza vaccination Influenza Vacc ine (#1) [facility] Start: 10-02-2019 Diabetes Screening Diabetes Screenin g [facility] Start: 10-02-2019 Lipid panel Lipid Screening [facility] Start: 10-02-2019 Screening for malign ant neoplasm of colon [facility] Start: 2014 Screening for malign ant neoplasm of breast Mammogram Screening [facility] Start: 1993 Hepatitis B Vaccine (1 of 3 - 19+ 3-dose series) Hepatitis B Vaccine (1 of 3 - 19+ 3-dose series) [facility] Start: 1992 Anxiety Screening Anxiety Screening [facility] Start: 1992 Depression Screening Depression Scre ening [facility] Start: 1992 Hepatitis C screening Hepatitis C Sc reening [facility] Start: 1992 HIV screening HIV Screening [facility] Start: 04-03-1975 Covid-19 Vaccine (#1) Covid-19 Vacci ne (#1) [facility] Start: 1974 Hepatitis B Vaccine (1 of 3 - 3-dose series) Hepatitis B Vaccine (1 of 3 - 3-dose series) [facility] DBT Breast - bilater al screening [facility] SCREENING [facility] Rad[facility] Routine Breast screening 08/01/2023 2:24 PM EST [facility] Work Phone: End: 09-03-2024 MG Breast - right Diagnostic for implant KARIN DIAGNOSTIC RIGHT Radiology Routine Abnormal mammogram 1 Occurrences starting 08/05/2023 until 09/03/2024 [facility] Work Phone: Comment on above: 1 Occurrences starti ng 08/05/2023 until 09/03/2024 Patient Education Using Crutches : Asl-[id number]-[id number] ED Ankle Fracture, Distal Fibula [facility] Work Phone: Patient referral [facility] Work Phone: End: 09-03-2024 US Breast - right limited US BREAST LTD RIGHT Radiology Routine Abnormal mammogram 1 Occurrences starting 08/05/2023 until 09/03/2024 [facility] Work Phone: Comment on above: 1 Occurrences starti ng 08/05/2023 until 09/03/2024 [facility] Immunizations Immunization Date Immunization Notes Care Provider [facility] 03-10-2020 influenza virus vacc ine, unspecified formulation Screen Wstr [facility] Payers Date Payer Category Payer Self-pay [id number] 2024 Private Health Insurance [facility] [employer] CHOICE PLUS [id number] 2024 Self-pay [id number] 2018 Unknown MMO MMO [employer] PPO [id number] 2018-Present [phone] [address] [place] [address] PPO [id number] Unknown [id number] Unknown [id number] Social History Date Type Detail Facility Tobacco smoking stat us NHIS Unknown if ever smoked [facility] Work Phone: Start: 1975 Sex Assigned At Female [facility] Start: 04-20-2023 End: 06-09-2023 Tobacco smoking status NHIS Unknown if ever smoked [facility] Start: 03-13-2023 End: 06-09-2023 Tobacco smoking status MAIS Never smoked tobacco [facility] Start: 03-13-2023 Tobacco use and exposure Smokeless tobacco non-user [facility] Start: 03-13-2023 End: 12-01-2024 History of Social function [facility] Start: 03-13-2023 End: 12-01-2024 Tobacco use panel [facility] National Score (1-10 0), lower number is lower risk 70 [facility] Start: 03-28-2021 Alcohol Comment 5 days per wee k - single drink [facility] Start: 03-28-2021 Sexual orientation Heterosexual (zahraa ding) [facility] Clinical Notes 04-20-2023 to 12-01-2024 Patient InstructionsBlanche Kern DO - 12/01/2024 8:00 AM VINEETTBAnjelica esquivel MD - 09/09/2024 3:57 PM EDTTelephone Encounter - Alva Marc MA - 11/16/2023 8:27 AM EDT Note Date & Type Note Facility 12-01-2024 Instructions Blanche Kern DO - 12/01/2024 8:43 AM EDT Lab information: I ordered labs to be done soon. Orders in 90 days. - The night before: fast 10-12 hours overnight. - The morning of: Drink a glass of water. You can take your medications, but do not take any supplements. Instructions: - Aim for 80 oz water per day. - Consume 70-75 g protein per day to maintain muscle mass. To know how much protein you are consuming use [employer] cesar. See healthy protein sources below. - Strength training 2-3x/week. Create of routine of upper and lower body strengthening once a week to start. - Consider adding Efren class 1x/week. - Download [employer] cesar on your smartphone. Scan the barcode to get a score. The higher the score, the healthier the item. High-protein foods Soy foods (non-GMO, organic) Tempeh 1/2 cup = 15 g Soy milk 1 cup = 8 g Edamame 1/2 cup cooked = 8 g Tofu 3 oz = 8 g Soy nuts 1/4 cup = 11 g Other plant-based proteins Seitan 1/2 cup = [address] Case black sotelo quinoa veggie burgers 1 = 7 g Tee's Naturals Panamanian seitan vegan crumbles 2 oz = 17 g Organic [place] vegan burgers 1 = 15 g Beans, peas, and lentils Lentils 1/2 cup cooked = 12 g Beans (black, carroll, garbanzo, kidney, navy) 1/2 cup cooked = 7-8 g Split peas 1/2 cup cooked = 8 g Peas 1/2 cup cooked = 4.3 g Pea milk 1 cup = 8 g Whole grains Whole wheat pasta 2 oz (dry), 1 cup cooked = 7-8 g Oats 1/2 cup cooked = 6 g Quinoa 1/2 cup cooked = 4 g Darius or Gokul's Killer whole grain bread 1 slice = 5 g 1/2 Darius whole grain Andorran muffin = 4 g Nuts and seeds Hemp seeds 3 Tbsp = 10 g Peanuts 1/4 cup = 9.5 g Peanut butter 2 Tbsp = 8 g Almonds 1/4 cup = 6 g Pumpkin seeds 2 Tbsp = 5 g Hazelnuts 1/4 cup = 5 g Tahini 2 Tbsp = 5 g Daron seeds 2 Tbsp = 4 g Walnuts 1/4 cup = 4.5 g Pecans 1/4 cup = 3 g Ground flaxseed 2 Tbsp = 2.6 g Fish and seafood Sockeye (wild) salmon 4 oz = 25-29 g [place] (farmed) salmon 4 oz = 22 g [place] trout 4 oz = 23 g Cod 4 oz = 20 g Tinned / canned fish: Sardines 3 oz = 18 g Mackerel 3 oz = 21 g Sockeye salmon 3 oz = 17 g Skipjack (light) tuna 3 oz = 22 g Ruby 3 oz = 18 g Dairy and eggs Cottage cheese 1/2 cup = 14 g Plain Setswana yogurt 1 serving = 14-25 g 1% milk 1 cup = 7 g 1 medium to large egg = 6 g Meat Chicken breast (skinless) 4 oz = 35 g Chicken thigh (skinless) 4 oz = 27 g Ground turkey (lean) 4 oz = 22 g [employer] lunch meat 2 slices = 8-9 g Duck 4 oz = 22 g Wendie hen 4 oz = 21-24 g Ground beef (lean) 4 oz = 29 g Ribeye steak 4 oz = 23 g Pork chop 4 oz = 27 g Pork tenderloin 4 oz = 29 g Protein powders, bars, and shakes Whey protein powder 32 g = 25 g Pea protein powder 32 g = 29 g Hemp protein powder 32 g = 15 g Mercer plant-based protein powder 32 g = 17 g Rx Bar = 12 g Mosh blueberry almond crunch = 12 g Slate high protein milk shakes = 20 g Soylent complete protein nutrition shake (vegan) = 30 g OWYN Pro Elite high protein shakes (vegan) = 32 g Forager Project unsweetened coconut protein shake (vegan) = 16 g documented in this encounter [facility] 12-01-2024 History of Presen t illness Narrative [facility] SUBJECTIVE: Diamond Avina is a 49 year old female with a PMH as listed below is a new patient who presents for a wellness consult. Consultation requested by Anjelica Harris MD for an opinion regarding Diamond Avina. My final recommendations will be communicated back to the referring provider by way of shared medical record. Recording using AlephD software for draft documentation of the visit was discussed with the patient/authorized industrial sales representative; all questions welcomed and answered. Patient/authorized industrial sales representative agreed to proceed CC: Diamond Avina is a 49-year-old female with a history of perimenopause, presenting for evaluation of perimenopausal symptoms and cognitive concerns. HPI: Perimenopause: - Symptoms began around January-March 2024, with significant worsening by August. - Initially experienced severe mood swings, insomnia, and frequent crying episodes triggered by minor events. - Started on estradiol and progesterone in August, leading to improved sleep and mood, and reduced hot flashes. - Reports allergic reaction to the adhesive on the hormone patch, causing redness and occasional pruritus. - Last menstrual period in October, which was delayed by 6 months; prior to that, menses occurred every 3 months. - Family history of early perimenopause in mother, who underwent a hysterectomy at age 42 due to prolonged bleeding. Cognitive Concerns: - Reports brain fog, memory issues, and difficulty focusing. - Symptoms have improved since starting hormone therapy but are still present. - No history of head injuries, CVA, or TIA. - Family history of Alzheimer's disease in maternal grandmother, who began showing symptoms in her late 60s. Anxiety and Depression: - History of anxiety and seasonal affective symptoms, managed with Cymbalta. - Reports improvement in mood and reduction in crying episodes since starting hormone therapy. - Anxiety levels have remained consistent and have not worsened with hormonal changes. Hypothyroidism: - History of hypothyroidism, previously managed with medication. - Last thyroid function tests were normal, but it has been a couple of years since the last evaluation. Lifestyle: - Diet consists mainly of home-cooked meals, with occasional dining out or fast food consumption. - Drinks 3-4 glasses of water per day and consumes 2-3 cups of caffeinated tea daily. - Alcohol consumption averages one drink per day, with no more than two drinks on any given day. - Engages in daily walking for exercise, approximately 15-20 minutes twice a day. - Sleeps 8 hours per night and feels well-rested. - Stress levels are moderate, with coping mechanisms including baths and deep breathing exercises. - Takes a multivitamin (Nature's Own) and a high-dose vitamin D supplement (50,000 IU once a week) since June 2023. - Occasional social smoking (approximately 2 cigarettes per year) and occasional recreational marijuana use (edibles). - Lives in [place] with and two children, one in college and one living in an apartment. 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 PERTINENT MEDICAL & FAMILY HISTORY Menopausal status: perimenopause, LMP October 2024 (6m after last period) HRT: estradiol patch, progesterone 200 mg qhs FHx ADRD: MaGM (onset age 65-68) Patient-Entered Questionnaires Higher Score is Better 11/30/2024 [facility] Physical Function PROMIS Physical Function T-Score 54 (within normal limits) 11/30/2024 [facility] Satisfaction with Social Roles PROMIS - Satisfaction with Participation in Social Roles T-Score 48 (Average) 11/30/2024 [facility] NEUROQOL COGNITIVE T-SCORE PROMIS Neuroqol Cognitive T-Score 46 (within normal limits) Lower Score is Better 11/30/2024 [facility] Anxiety PROMIS Anxiety T-Score 56 (mild) 11/30/2024 [facility] Sleep Disturbance PROMIS Sleep Disturbance T-Score 44 (within normal limits) 11/30/2024 [facility] Depression PROMIS Depression T-Score 51 (within normal limits) 11/30/2024 [facility] Pain Interference PROMIS Pain Interference T-Score (range: 10 - 90) 47 (within normal limits) 11/30/2024 [facility] Fatigue PROMIS Fatigue T-Score 53 (within normal limits) DIET She cooks at home and eats out 2x/month. Fast food: 1x/month Water: 3-4 glasses/day Alcohol: average 1 drink/day, no more than 2 per day Coffee: none Tea: 2-3 cups black tea with honey EXERCISE Walks dog for 15-20 min 2x/day SLEEP Sleeping better since starting progesterone. Sleeps 8h/night and feels rested. Sleep aids: progesterone 200 mg STRESS Moderate stress levels. Stress relief: massage, bath with epsom salt, deep breathing SUPPLEMENTS Women's MTI, D3 50,000 units 1x/week (since Jun 2023, not taking consistently lately) SOCIAL HISTORY Home: lives with in [place]. Son and dtr out of house. Work: speech therapy for grades K-12 Education: 18 years, master's degree Marijuana: occasional rec marijuana Tobacco: 2 cigarettes/year (socially) Tobacco Use: Low Risk (12/01/2024) Patient History Smoking Tobacco Use: Never Smokeless Tobacco Use: Never Passive Exposure: Not on file REVIEW OF SYSTEMS: Constitutional: (+) weight loss, (-) fatigue, (-) insomnia Genitourinary: (+) irregular menses Skin: (+) rash, (+) pruritus Neurological: (+) memory impairment, (+) impaired concentration Psychiatric: (+) anxiety, (-) depressed mood Endocrine: (+) hot flashes PHYSICAL EXAM: VS: BP 118/78 Pulse 65 Ht 159 cm (5' 2.6") Wt 73.9 kg (162 lb 14.7 oz) LMP 05/11/2024 (Approximate) SpO2 100% BMI 29.23 kg/m General: alert and appropriate, in no distress, well-hydrated, well nourished, and happy, smiling, interactive SKIN: Mild irritation noted at the site of the estradiol patch, erythema present. Neurologic: no facial droop, speech is clear and fluent and no obvious deficit Soren Cognitive Assessment (MoCA) v8.1 MoCA: Version 8 Visuospatial/Executive: 5 Namin Attention: 5 Language: 3 Abstraction: 2 Delayed Memory: 5 Orientation: 6 Education < or equal to 12 years (1 is true, 0 is false): 0 Memory Index Score (MIS): 15 Soren Cognitive Assessment (MoCA): 29 Score of 26 or above considered normal 18-25 =mild cognitive impairment, 10-17 = moderate cognitive impairment, <10 = severe cognitive impairment LABS: ASSESSMENT & PLAN: Diamond Avina is a 49 year old female with a pertinent PMH of hypothyroidism, overweight, SAD, and anxiety who is here to address cognitive complaints with integrative and lifestyle medicine. MoCA was administered today and will be scanned into the medical record. 1. Perimenopause (N95.1) 2. On hormone replacement therapy (Z79.890) 3. Brain fog (R41.89) - Experiencing significant improvement in sleep and reduction in hot flashes since initiating estradiol and progesterone therapy in August. - Noted mild cognitive impairment, including memory issues and trouble focusing; MoCA score 29/30, indicating normal cognitive function. - Discussed temporary nature of cognitive symptoms due to hormonal fluctuations. - Scheduled to see Dr. Randhawa in May. - Advised to send a message to Dr. Harris regarding skin irritation from the estradiol patch; discussed alternative delivery methods and potential latex-free options. - Ordered labs to assess micronutrient deficiencies, including B12 and TSH. - Recommended lifestyle modifications to optimize brain health, including increased water intake to 80 ounces per day, protein intake of 70-75 grams per day, and initiation of strength training exercises at least once a week. - Advised use of the Posiq to make healthier food choices. - Follow-up in four months to reassess symptoms and review lab results. 4. Acquired hypothyroidism (E03.9) - History of hypothyroidism, previously managed with medication, currently stable without medication. - Ordered TSH to monitor thyroid function. 5. Overweight (E66.3) - Noted weight gain during period of reduced mobility due to ankle fracture; has since lost 25 pounds over the past year through dietary changes and increased physical activity. - Advised continuation of current dietary practices and initiation of strength training exercises to further support weight loss and muscle maintenance. 6. Vitamin D deficiency (E55.9) - Currently taking high-dose vitamin D 50,000 IU once a week, prescribed in June 2023 due to low levels. - Inconsistent with supplementation during summer months. - Ordered vitamin D level to assess current status. 7. Family history of cardiovascular disease (Z82.49) - Maternal grandfather and multiple siblings from heart attacks. - Ordered lipid panel to assess cholesterol levels. 8. Lipid screening (Z13.220) - Ordered lipid panel to assess cholesterol levels. 9. Allergic contact dermatitis due to adhesives (L23.1) - Noted mild skin irritation from estradiol patch adhesive. - Advised to discuss alternative delivery methods with Dr. Harris. Return: 4 months I spent 65 minutes in jqkp-[id number]-[id number] time with the patient of which greater than 50% of the time was spent in counseling and coordination of care. Blanche Kern DO, MPH Wellness and Preventive Medicine [facility] CC: Anjelica Harris [address] [phone] documented in this encounter [facility] 12-01-2024 Note HNO ID: [id number] Author: BLANCHE KERN, DO Service: ? Author Type: Physician Type: Progress Notes Filed: 12/01/2024 09:09 Note Text: [facility] SUBJECTIVE: Diamond Avina is a 49 year old female with a PMH as listed below is a new patient who presents for a wellness consult. Consultation requested by Anjelica Harris MD for an opinion regarding Diamond Avina. My final recommendations will be communicated back to the referring provider by way of shared medical record. Recording using AlephD software for draft documentation of the visit was discussed with the patient/authorized industrial sales representative; all questions welcomed and answered. Patient/authorized industrial sales representative agreed to proceed CC: Diamond Avina is a 49-year-old female with a history of perimenopause, presenting for evaluation of perimenopausal symptoms and cognitive concerns. HPI: Perimenopause: - Symptoms began around January-March 2024, with significant worsening by August. - Initially experienced severe mood swings, insomnia, and frequent crying episodes triggered by minor events. - Started on estradiol and progesterone in August, leading to improved sleep and mood, and reduced hot flashes. - Reports allergic reaction to the adhesive on the hormone patch, causing redness and occasional pruritus. - Last menstrual period in October, which was delayed by 6 months; prior to that, menses occurred every 3 months. - Family history of early perimenopause in mother, who underwent a hysterectomy at age 42 due to prolonged bleeding. Cognitive Concerns: - Reports brain fog, memory issues, and difficulty focusing. - Symptoms have improved since starting hormone therapy but are still present. - No history of head injuries, CVA, or TIA. - Family history of Alzheimer's disease in maternal grandmother, who began showing symptoms in her late 60s. Anxiety and Depression: - History of anxiety and seasonal affective symptoms, managed with Cymbalta. - Reports improvement in mood and reduction in crying episodes since starting hormone therapy. - Anxiety levels have remained consistent and have not worsened with hormonal changes. Hypothyroidism: - History of hypothyroidism, previously managed with medication. - Last thyroid function tests were normal, but it has been a couple of years since the last evaluation. Lifestyle: - Diet consists mainly of home-cooked meals, with occasional dining out or fast food consumption. - Drinks 3-4 glasses of water per day and consumes 2-3 cups of caffeinated tea daily. - Alcohol consumption averages one drink per day, with no more than two drinks on any given day. - Engages in daily walking for exercise, approximately 15-20 minutes twice a day. - Sleeps 8 hours per night and feels well-rested. - Stress levels are moderate, with coping mechanisms including baths and deep breathing exercises. - Takes a multivitamin (Nature's Own) and a high-dose vitamin D supplement (50,000 IU once a week) since June 2023. - Occasional social smoking (approximately 2 cigarettes per year) and occasional recreational marijuana use (edibles). - Lives in [place] with and two children, one in college and one living in an apartment. 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 PERTINENT MEDICAL AND FAMILY HISTORY Menopausal status: perimenopause, LMP October 2024 (6m after last period) HRT: estradiol patch, progesterone 200 mg qhs FHx ADRD: MaGM (onset age 65-68) Patient-Entered Questionnaires Higher Score is Better 11/30/2024 [facility] Physical Function PROMIS Physical Function T-Score 54 (within normal limits) 11/30/2024 [facility] Satisfaction with Social Roles PROMIS - Satisfaction with Participation in Social Roles T-Score 48 (Average) 11/30/2024 [facility] NEUROQOL COGNITIVE T-SCORE PROMIS Neuroqol Cognitive T-Score 46 (within normal limits) Lower Score is Better 11/30/2024 [facility] Anxiety PROMIS Anxiety T-Score 56 (mild) 11/30/2024 [facility] Sleep Disturbance PROMIS Sleep Disturbance T-Score 44 (within normal limits) 11/30/2024 [facility] Depression PROMIS Depression T-Score 51 (within normal limits) 11/30/2024 [facility] Pain Interference PROMIS Pain Interference T-Score (range: 10 - 90) 47 (within normal limits) 11/30/2024 [facility] Fatigue PROMIS Fatigue T-Score 53 (within normal limits) DIET She cooks at home and eats out 2x/month. Fast food: 1x/month Water: 3-4 glasses/day Alcohol: average 1 drink/day, no more than 2 per day Coffee: none Tea: 2-3 cups black tea with honey EXERCISE Walks dog for 15-20 min 2x/day SLEEP Sleeping better since starting progesterone. Sleeps 8h/night and feels rested. Sleep aids: progesterone 200 mg STRESS Moderate stress levels. Stress relief: massage, bath with epsom salt, deep breathing SUPPLEMENTS Women's (more content not included)... [facility] 2024 Radiology Diagnostic study note [facility] Imaging Services [address] [place] [id number] [phone] Foot min 3 Views MR#: [id number] Acct: [id number] Name: DIAMOND AVINA Rep #: [id number] : 1975 F 48 From: Ba Bell MD PCP: Dr. 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 No fracture or dislocation. Enthesophyte formation plantar surface of the calcaneus. RAD/Foot min 3 Views IMPRESSION: Right foot: Hallux valgus metatarsus varus deformity with bunion appears tvtk-hkvzuxt-eara-right. No fracture or dislocation. Enthesophyte formation plantar surface of the calcaneus. Reading Location: [id number] CC: Dr. Tremayne Baker MD ~ Wildlife Biology Internship: Signed [facility] 2024 Radiology Diagnostic study note [facility] Imaging Services [address] [place] [address] Foot min 3 Views MR#: [id number] Acct: [id number] Name: DIAMOND AVINA Rep #: [id number] : 1975 F 48 From: Ba Bell MD PCP: Dr. Tremayne Baker MD Status: REG C KIMBERLI Study:Foot min 3 Views Date of Exam: 06/26 Exam# [id number] Ordering Dr: Tremayne Baker MD EXAM: Foot minimum three views CLINICAL HISTORY: Bunion, pain COMPARISON: Right foot TECHNIQUE: Three views left foot FINDINGS: Left foot: Hallux valgus metatarsus varus deformity with bunion appears [id number]-stsp-right. No fracture or dislocation. Enthesophyte formation plantar surface of the calcaneus. RAD/Foot min 3 Views IMPRESSION: Left foot: Hallux valgus metatarsus varus deformity with bunion appears efeq-jjruosv-zbdn-right. No fracture or dislocation. Enthesophyte formation plantar surface of the calcaneus. Reading Location: [id number] CC: Dr. Tremayne Baker MD ~ Wildlife Biology Internship: Signed [facility] 09-09-2024 Note HNO ID: [id number] Author: ANJELICA HARRIS MD Service: ? Author Type: Physician Type: Progress Notes Filed: 09/10/2024 21:14 Note Text: CC: perimenopause symptoms Diamond Avina is a 48 year old female who presents for problem visit menopause symptoms. HPI: The patient is a 48-year-old female presenting for evaluation of worsening mood swings, hot flashes, and night sweats. The patient reports a significant increase in mood swings over the past year, with symptoms intensifying in the last few months. She describes frequent episodes of uncontrolled sobbing, including during a recent vacation. She feels as though she is experiencing constant PMS, stating, "I feel like I'm having the week before my period all the time." She notes irritability, often "biting her 's head off." She also reports increased forgetfulness, frequently asking her tvvrij-wr-byu with dementia to remind her of what she was saying. She has been taking Cymbalta 60 mg daily for 2-3 years, which has helped with hip pain but has not provided relief for her mood symptoms. She previously tried Wellbutrin without noticeable benefit. The patient experiences severe hot flashes and night sweats, which had previously resolved but have returned. These symptoms disrupt her sleep, causing her to frequently adjust her covers. She is able to return to sleep after episodes but notes that her sleep quality varies, with some nights being better than others. Her menstrual periods have become irregular; the last period occurred 4 months ago and lasted a few days, with the previous one occurring 3 months prior. She has not gone a full year without a period. She describes her periods as "all over the place," whereas they were previously very regular. She has not tried any treatments for her symptoms and expresses a desire to avoid control pills. She is open to hormonal management for perimenopausal symptoms, particularly to address mood instability. She prioritizes mood stabilization over the management of hot flashes and night sweats, stating she can handle the latter but not the former. She denies personal or family history of blood clots, breast cancer, uterine cancer, or ovarian cancer. She is currently taking Women's One A Day multivitamin. OB History Gravida4 Para2 Term2 Preterm0 AB2 Living2 SAB1 IAB1 Ectopic0 Multiple0 Live Births2 Comment: TAB x 1, SAB x 1 x 2 - largest baby was [id number] Stores Assistant History LMP: 05/11/2024 (Approximate), Having periods Age at Menarche: Age at First : Age at Menopause: Stores Assistant History Comments: Sexual Activity: Yes; Male Contraception: No contraception data on record PAST MEDICAL HISTORY Diagnosis Date Anxiety state Arthritis Hypothyroid Seasonal allergies PAST SURGICAL HISTORY Procedure Laterality Date KNEE RIGHT OP SURGERY 2009 OTHER L3-4 discectomy REPAIR OF NASAL SEPTUM 2010 TONSILLECTOMY AND ADENOIDECTOMY HX FAMILY HISTORY Problem Relation Age of Onset Breast Cancer No Family History Ovarian cancer No Family History Uterine Cancer No Family History Social History Tobacco Use Smoking status: Never Smokeless tobacco: Never Vaping Use Vaping status: Never Used Substance Use Topics Drug use: Never Current Outpatient Medications Medication Sig mv-mn/iron fum/FA/omega3,6,9#3 (WOMEN'S MULTI ORAL) Take 1 tablet by mouth once daily. DULoxetine (CYMBALTA) 60 mg capsule Take 60 mg by mouth once daily. progesterone micronized (PROMETRIUM) 200 mg capsule Take 1 capsule by mouth daily at bedtime. estradiol (VIVELLE-DOT) 0.0375 mg/24 hr patch Apply 1 patch as directed two times a week. No current facility-administered medications for this visit. Allergies As of Date: 09/09/2024 Allergen Noted Reaction SEASONAL ALLERGIES 11/08/2016 Other: See Comments Fully Assessed 09/09/2024 REVIEW OF SYSTEMS Constitutional: (+) night sweats, (+) sleep disturbance Genitourinary: (+) irregular menses Neurological: (+) forgetfulness Psychiatric: (+) mood swings, (+) crying episodes, (+) emotional lability Endocrine: (+) hot flashes SENSITIVE EXAM: Sensitive exam not performed. EXAM: BP 112/78 Wt 166 lb 7.2 oz (75.5kg) LMP 05/11/2024 GENERAL: pleasant, female in no apparent distress 1. Perimenopause (N95.1) Menopausal and perimenopausal disorder (N95.9) Experiencing significant mood swings, hot flashes, and night sweats. Last menstrual period was four months ago, with irregular cycles noted. Symptoms have worsened over the past year. Currently on Cymbalta 60 mg daily for the past 2-3 years, previously tried Wellbutrin without noticeable effect. - Discussed potential benefits of hormone replacement therapy (HRT) for symptom management. - Consulted with a colleague regarding initiation of HRT. - Referred to a menopause specialist for further evaluation and management. 2. Irregular menstrual cycle (N92.6) Me (more content not included)... [facility] 09-09-2024 History of Presen t illness Narrative CC: perimenopause symptoms Diamond Avina is a 48 year old female who presents for problem visit menopause symptoms. HPI: The patient is a 48-year-old female presenting for evaluation of worsening mood swings, hot flashes, and night sweats. The patient reports a significant increase in mood swings over the past year, with symptoms intensifying in the last few months. She describes frequent episodes of uncontrolled sobbing, including during a recent vacation. She feels as though she is experiencing constant PMS, stating, "I feel like I'm having the week before my period all the time." She notes irritability, often biting her 's head off." She also reports increased forgetfulness, frequently asking her bhvsze-qw-eyw with dementia to remind her of what she was saying. She has been taking Cymbalta 60 mg daily for 2-3 years, which has helped with hip pain but has not provided relief for her mood symptoms. She previously tried Wellbutrin without noticeable benefit. The patient experiences severe hot flashes and night sweats, which had previously resolved but have returned. These symptoms disrupt her sleep, causing her to frequently adjust her covers. She is able to return to sleep after episodes but notes that her sleep quality varies, with some nights being better than others. Her menstrual periods have become irregular; the last period occurred 4 months ago and lasted a few days, with the previous one occurring 3 months prior. She has not gone a full year without a period. She describes her periods as "all over the place," whereas they were previously very regular. She has not tried any treatments for her symptoms and expresses a desire to avoid control pills. She is open to hormonal management for perimenopausal symptoms, particularly to address mood instability. She prioritizes mood stabilization over the management of hot flashes and night sweats, stating she can handle the latter but not the former. She denies personal or family history of blood clots, breast cancer, uterine cancer, or ovarian cancer. She is currently taking Women's One A Day multivitamin. OB History Gravida4 Para2 Term2 Preterm0 AB2 Living2 SAB1 IAB1 Ectopic0 Multiple0 Live Births2 Comment: TAB x 1, SAB x 1 x 2 - largest baby was [id number] Stores Assistant History LMP: 05/11/2024 (Approximate), Having periods Age at Menarche: Age at First : Age at Menopause: Stores Assistant History Comments: Sexual Activity: Yes; Male Contraception: No contraception data on record PAST MEDICAL HISTORY Diagnosis Date Anxiety state Arthritis Hypothyroid Seasonal allergies PAST SURGICAL HISTORY Procedure Laterality Date KNEE RIGHT OP SURGERY 2009 OTHER L3-4 discectomy REPAIR OF NASAL SEPTUM 2010 TONSILLECTOMY AND ADENOIDECTOMY HX FAMILY HISTORY Problem Relation Age of Onset Breast Cancer No Family History Ovarian cancer No Family History Uterine Cancer No Family History Social History Tobacco Use Smoking status: Never Smokeless tobacco: Never Vaping Use Vaping status: Never Used Substance Use Topics Drug use: Never Current Outpatient Medications Medication Sig mv-mn/iron fum/FA/omega3,6,9#3 (WOMEN'S MULTI ORAL) Take 1 tablet by mouth once daily. DULoxetine (CYMBALTA) 60 mg capsule Take 60 mg by mouth once daily. progesterone micronized (PROMETRIUM) 200 mg capsule Take 1 capsule by mouth daily at bedtime. estradiol (VIVELLE-DOT) 0.0375 mg/24 hr patch Apply 1 patch as directed two times a week. No current facility-administered medications for this visit. Allergies As of Date: 09/09/2024 Allergen Noted Reaction SEASONAL ALLERGIES 11/08/2016 Other: See Comments Fully Assessed 09/09/2024 REVIEW OF SYSTEMS Constitutional: (+) night sweats, (+) sleep disturbance Genitourinary: (+) irregular menses Neurological: (+) forgetfulness Psychiatric: (+) mood swings, (+) crying episodes, (+) emotional lability Endocrine: (+) hot flashes SENSITIVE EXAM: Sensitive exam not performed. EXAM: BP 112/78 Wt 166 lb 7.2 oz (75.5kg) LMP 05/11/2024 GENERAL: pleasant, female in no apparent distress 1. Perimenopause (N95.1) Menopausal and perimenopausal disorder (N95.9) Experiencing significant mood swings, hot flashes, and night sweats. Last menstrual period was four months ago, with irregular cycles noted. Symptoms have worsened over the past year. Currently on Cymbalta 60 mg daily for the past 2-3 years, previously tried Wellbutrin without noticeable effect. - Discussed potential benefits of hormone replacement therapy (HRT) for symptom management. - Consulted with a colleague regarding initiation of HRT. - Referred to a menopause specialist for further evaluation and management. 2. Irregular menstrual cycle (N92.6) Menstrual cycles have become increasingly irregular, with the last period occurring four months ago. - Monitor menstrual cycle patterns. - Addressed in the context of perimenopausal management. 3. Labile mood (R45.86) Severe mood swings described as feeling like PMS constantly. Mood symptoms are the most distressing aspect of her perimenopausal experience. Current treatment with Cymbalta 60 mg daily has not adequately controlled mood symptoms. - Initiate hormone replacement therapy to address mood instability. - Follow-up with menopause specialist to optimize treatment. Recording using AlephD software for draft documentation of the visit was discussed with the patient/authorized industrial sales representative; all questions welcomed and answered. Patient/authorized industrial sales representative agreed to proceed Patient consent to medical student being present for visit Uses vasectomy for contraception Start prometrium and vivelle dot Refer to Pelin Patur and SMA menopause I spent a total of 40 minutes on the date of the service which included preparing to see the patient, zkex-op-nsss patient care, counseling and educating the patient/family/caregiver, and care coordination (not separately reported). Anjelica Harris MD documented in this encounter [facility] 11-16-2023 Telephone encounter Note Left message on secure voicemail of results for pt. Alva Marc MA [facility] 11-16-2023 Miscellaneous Notes Left message on secure voicemail of results for pt. Alva Marc MA Please contact patient and let her know that she did test positive for shingles. Please take the antiviral as discussed. documented in this encounter [facility] 11-16-2023 Telephone encounter Note Please contact patient and let her know that she did test positive for shingles. Please take the antiviral as discussed. [facility] 11-15-2023 History of Presen t illness Narrative Images from the original note were not included. This note was created using GreenerUriter. Subjective Diamond Avina is a 48 year old female. HPI 48-year-old female presents for rash. Patient states she noticed a rash on her left side about 4 days ago. She has noticed new lesions in the past 3 days. She states that rash is occasionally itchy and painful. She denies any fevers. No rash anywhere else. She states she was recently in [place] and swimming in a pool. Nobody else at home has similar rash. Denies history of shingles. She has a chickenpox as a child. She denies any fevers. She put antifungal cream and hydrocortisone cream on it without improvement. No other complaint. PAST MEDICAL HISTORY Diagnosis Date Anxiety state Arthritis Hypothyroid Seasonal allergies PAST SURGICAL HISTORY Procedure Laterality Date KNEE RIGHT OP SURGERY 2009 OTHER L3-4 discectomy REPAIR OF NASAL SEPTUM 2010 TONSILLECTOMY AND ADENOIDECTOMY HX ALLERGIES Seasonal Allergies MEDICATIONS DULoxetine (CYMBALTA) 60 mg capsule Take 60 mg by mouth once daily. Norethindrone Acet-Ethinyl Est (MICROGESTIN 06/21) 1-20 mg-mcg per tablet Take 1 tablet by mouth once daily. valACYclovir (VALTREX) 1 gram tablet Take 1 tablet by mouth three times a day for 7 days. buPROPion SR (ZYBAN SR; WELLBUTRIN SR) 150 mg 12 hr tablet Take 150 mg by mouth twice daily. (Patient not taking: Reported on 11/15/2023) FAMILY HISTORY Problem Relation Age of Onset Breast Cancer No Family History Ovarian cancer No Family History Uterine Cancer No Family History Social History Tobacco Use Smoking status: Never Smokeless tobacco: Never Vaping Use Vaping Use: Never used Substance Use Topics Drug use: Never Review of Systems Constitutional: Negative for chills and fever. HENT: Negative for congestion, ear pain and sore throat. Respiratory: Negative for cough and shortness of breath. Cardiovascular: Negative for chest pain. Gastrointestinal: Negative for diarrhea and vomiting. Skin: Positive for rash. Objective BP 97/55 Pulse 82 Temp 36.5 C (97.7 F) Resp 18 Wt 87 kg (191 lb 12.8 oz) LMP 12/17/2022 (Approximate) SpO2 100% Physical Exam Vitals and nursing note reviewed. Constitutional: General: She is not in acute distress. Appearance: Normal appearance. She is not toxic-appearing. HENT: Nose: Nose normal. Mouth/Throat: Mouth: Mucous membranes are moist. Eyes: Conjunctiva/sclera: Conjunctivae normal. Cardiovascular: Rate and Rhythm: Normal rate and regular rhythm. Pulmonary: Effort: Pulmonary effort is normal. Breath sounds: Normal breath sounds. Skin: General: Skin is warm and dry. Findings: Rash present. Comments: Erythematous raised lesions noted over left flank. 2 areas of coalesced lesions. Several appear vesicular. None crusted. No lymphatic streaking. No significant surrounding erythema. Neurological: Mental Status: She is alert. Assessment and Plan ASSESSMENT/PLAN: 1. Rash - ICD9: 782.1, ICD10: R21 -Suspect herpes zoster versus a contact dermatitis. -Patient has had new lesions in the past several days, will start Valtrex. -If swab negative, patient may stop Valtrex. - HSV1,2/VZV NAAT LESION Diagnosis and treatment plan were discussed and questions were answered to the patient's satisfaction. Pt acknowledged understanding of concepts and follow up plan. Specific signs and symptoms that would indicate the need for higher level of care were discussed in detail warranting prompt ER evaluation. PATO Walker documented in this encounter [facility] 09-05-2023 Discharge summary Note Date/Time September 05, 2023 8:14 am [facility] Physical Therapy [facility] [address] [place] [address] / REHABILITATION SERVICES DISCHARGE SUMMARY MR#: [id number] Acct: [id number] Name: DIAMOND AVINA Rep #: [id number] : 1975 47 From: Dominick Mccarthy Referring Dr.: Dr. Angelo Cervantes MD Status: REG R Insurance: [facility] SELF PAY INSURANCE Discharge Summary D/C summary: It has been my pleasure to treat DIAMOND AVINA referred by Dr. Angelo Cervantes MD, with the diagnosis of L fibular fx for a total of 18 visit(s). Discharge Date: 09/05/23 Please see the following information for a summary of their discharge status. Subjective Subjective: Pt reports feeling good with decreased pain, some soreness on long days when she walks but is generally able to do what she wishes. Still cautious when walking on uneven grass, but has no pain. Pt sought second opinion for fibular fx, taking some vitamin D3 to help with bone growth. Pain Left Ankle: Pain Intensity (Out of 10): 0 Overall Improvement % Improvement: 90 Objective Objective/Function: ROM: WNL, no pain or stretching MMT: 5/5 strength, no pain GAIT: normalized pattern STAIRS: reciprocal pattern with no UE suppport, stair calf stretch felt good andable to do deficit calf raises with no pain or irritation in ankle PALPATION: no lateral tenderness Pt demo's functional ROM and strength with decreased pain overall. Pt to d/c home with HEP to maintain strengthening, stretching, and main Goals Goal 1:: Pt will achieve normal L ankle ROM with 0/10 pain during movement. Goal Progress: Goal Met Goal 2:: Pt will be able to amb. unlimited distances with 0/10 pain with normalized gait pattern. Goal Progress: Goal Met Goal 3:: Pt will ascend/descend stairs with normal reciprocal pattern and 0/10 pain Goal Progress: Goal Met Goal 4:: Pt will be able to stand for 1+ hour with <2/10 pain/soreness Goal Progress: Goal Met Goal 5:: Pt will be able to perform SLS for at least 10s B to indicate improved ankle stability and WBing tolerance Goal Progress: Goal Met Goal 6:: Pt will achieve 4+/5 global strength in L ankle Plan Plan: Pt to d/c home with [facility], has reached all goals and is appropriate tocontinue strengthening and stretching at home. Pt to call if she has any questions or concerns. D/C Information Discharge Comments: Pt. will be DC to [facility] at this point in time. She was treatedfor her L fibular fx. She is doing well at this point in time. She is to continue with progressive walking and WBing exercises at tolerated. Pt. consents. d/c sentence: If there are questions or concerns regarding this patient's physical therapy, please feel free to call me at [phone]. Thank you for the referral of thispatient. Sincerely, Dominick Colindres, DPT Balance/Gait/Functional tests Balance/Special Test Scores Lower Extremity Functional Score: 61 Improvement % Improvement: 90 <Electronically signed by Dominick Colindres DPT> 09/05/23 0814 CC: Dr. Tremayne Baker MD; Dr. Angelo Cervantes MD ~ CLS Signed [facility] Work Phone: 1(764) 630-419003-20-2024 History of Present illness Narrative* Farheen Gonzales, [facility] - 08/20/2023 9:30 AM EDT Radiology Service Progress Note PATIENT NAME: Diamond Avina DATE OF SERVICE: August 20, 2023 TIME: 1:34 PM PATIENT IDENTITY VERIFICATION COMPLETED USING TWO (2) IDENTIFIERS: Name and Date of confirmedby patient verbally. FALL SCREENING: Has the patient had 2 falls in the last year or 1 fall with injury or currently using an Ambulatory Assistive Device (Walker, Cane, Wheelchair, Crutches, etc.)? No PATIENT GENDER DATA: Female. status: : No status: NO. PATIENT RELEVANT IMPLANT DATA REVIEWED: Not Applicable PATIENT PRESENTS WITH AN IMPLANTABLE OR ATTACHED SECURITY OFFICER SUPERVISOR: No RADIOLOGY DEPARTMENT: Ultrasound PERIPHERAL IV DATA: Not applicable SIGNED BY: Farheen Gonzales RDMS August 20, 2023 1:34 PM [facility] History of Present illness Narrative* Jw Arreola Mammo Evette - 08/20/2023 9:00 AM EDT Radiology Service Progress Note PATIENT NAME: Diamond Avina DATE OF SERVICE: August 20, 2023 TIME: 9:26 AM PATIENT IDENTITY VERIFICATION COMPLETED USING TWO (2) IDENTIFIERS: Name and Date of confirmedby patient verbally. FALL SCREENING: Has the patient had 2 falls in the last year or 1 fall with injury or currently using an Ambulatory Assistive Device (Walker, Cane, Wheelchair, Crutches, etc.)? No PATIENT GENDER DATA: Female. status: : No status: NO. PATIENT RELEVANT IMPLANT DATA REVIEWED: Not Applicable PATIENT PRESENTS WITH AN IMPLANTABLE OR ATTACHED SECURITY OFFICER SUPERVISOR: No RADIOLOGY DEPARTMENT: Mammography PERIPHERAL IV DATA: Not applicable SIGNED BY: Jw Arreola Mammo Evette August 20, 2023 9:26 AM [facility] Miscellaneous Notes* Letter - Coordinator, Mammography - 08/05/2023 7:49 AM EST August 05, 2023 PID: [id number] Diamond Avina [address] [place] [address] Dear Ms. Avina, Your prior imaging studies have arrived and been compared to your current study performed on 08/01/2023 which showed a possible finding that requires additional imaging studies for a complete evaluation. Most such findings are probably benign (not cancer). If you have a healthcare provider who ordered/prescribed your screening mammogram: Please call [phone] or [phone]: [phone] to schedule an appointment for your additional imaging (if youhave not already done so). If you DO NOT have a healthcare provider (ie you did not have an order/prescription for your screening mammogram): Please call to schedule an appointment for your additional imaging (if you have not already done so). You must have an order/prescription from your physician when calling to schedule your appointment. If your order/prescription is not electronic, you must bring the hard copy with you on the day of your exam to avoid delays. Your imaging studies and reports are kept on file at [facility] as part of your permanent medical record, and are available for your continuing care. Thank you for allowing us to help in meeting your health care needs. Sincerely, Dr. Sheppard Interpreting Radiologist [facility] (compared needs [facility] imaging) [facility] Miscellaneous Notes* Letter - Coordinator, Mammography - 08/03/2023 7:10 PM EST August 04, 2023 PID: [id number] Diamond Avina [address] [place] [address] Dear Ms. Avina, Your breast imaging exam 08/01/2023 showed a possible finding that may require additional imaging studies for a complete evaluation. However, we recognize you have prior imaging studies at facilities other than [facility], and would like the opportunity to compare your recent imaging with thosestudies to evaluate for any change. At this time, we have requested your prior studies. If/when your prior studies arrive, a final report will be sent to your healthcare provider and/or you. In addition, you will receive a new result letter and or phone call If you need additional imaging. If we do not receive prior studies within 30 days of your exam, you will receive a reminder letter and or phone call to schedule your diagnostic imaging. Your imaging studies and reports are kept on file at [facility] as part of your permanent medical record, and are available for your continuing care. If you have any questions or concerns, please call [phone]. Thank you for choosing [facility] for your imaging needs. Sincerely, Dr. Sheppard Interpreting Radiologist [facility] ([employer]) [facility] History of Present illness Narrative* Becca Arora Mammo Tech - 08/01/2023 2:30 PM EST Radiology Service Progress Note PATIENT NAME: Diamond Avina DATE OF SERVICE: August 01, 2023 TIME: 3:03 PM PATIENT IDENTITY VERIFICATION COMPLETED USING TWO (2) IDENTIFIERS: Name and Date of confirmedby patient verbally. FALL SCREENING: Has the patient had 2 falls in the last year or 1 fall with injury or currently using an Ambulatory Assistive Device (Walker, Cane, Wheelchair, Crutches, etc.)? No PATIENT GENDER DATA: Female. status: : No status: NO. PATIENT RELEVANT IMPLANT DATA REVIEWED: Not Applicable PATIENT PRESENTS WITH AN IMPLANTABLE OR ATTACHED SECURITY OFFICER SUPERVISOR: No RADIOLOGY DEPARTMENT: Mammography PERIPHERAL IV DATA: Not applicable SIGNED BY: Abundio Chambers August 01, 2023 3:03 PM [facility]23 Discharge summary Author Fam Maciel [facility] April 20, 2023 10:13pm Note Date/Time April 20, 2023 9:08pm [facility] Medical Records Department [address] [place] [address] Emergency Department Summary 04/20/23 MR#: [id number] Acct: [id number] Name: DIAMOND AVINA Rep #:[id number] : 1975 47 From: Fam Maciel MD PCP: Dr. Tremayne Baker MD Status:REG E R Location: ED HPI History of Present Illness Chief Complaint: Lower Extremity Injury Informant: patient and spouse/S.O. Narrative Narrative: Patient states she went outside to move her car and she stepped in a wet grass and slipped, causing her to roll her left ankle, causing immediate pain to the lateral aspect. No other injury although she did fall. Not able to put any weight on it since then. PFSH [facility] Medical History (Updated 04/20/23 @ 22:[address] Fam Maciel MD) Anxiety Depression Deviated nasal septum Home Medications duloxetine 60 mg capsule,delayed release 60 mg PO DAILY 04/20/23 [History Last Taken Unknown] hydrocodone-acetaminophen 5-325mg 5mg-325mg 1 tab PO Q6H PRN PRN Pain 3 days #10TABLETS 04/20/23 [Rx Last Taken Unknown] Allergy/AdvReac Type Severity Reaction Status Date / Time No Known Allergies Allergy Verified 04/20/23 21:01 Family History no significant family his Surgical History (Updated 04/20/23 @ 21:35 by Wendy Baker) History of back surgery History of repair of ACL Social History (Updated 04/20/23 @ 21:35 by Wendy Baker) household members: family Smoking Status: Never smoker ROS ROS ED Constitutional Constitutional ED: Denies chills or fever(s) Musculoskeletal Musculoskeletal: Reports extremity pain; Denies neck pain Integumentary Denies Abrasions, rash or wounds Neurologic Neurologic: Denies paresthesias or weakness EXAM Physical Exam Const Vital Signs: 04/20/23 21:00 Temperature 97.0 F L Temperature Source Temporal Pulse Rate 62 Respiratory Rate 18 Blood Pressure 146/91 H Blood Pressure Mean 109 Pulse Ox 100 Oxygen Delivery Method Room Air Positive well nourished and well developed General Appearance ED: well developed and NAD Neck full ROM and supple Back/Spine normal ROM and normal to inspection Extremity Extremity Narrative: Limited range of motion left ankle due to pain. She is tender in the distal fibula, before the absolute distal aspect. There is no other areas of tenderness in the foot. This includes the base of the fifth metatarsal. Fibular head is nontender. Full range of motion of the knee without difficulty or pain. Medial malleolus nontender. No deformities. Otherwise extremity examis benign. Neuro oriented x3, no focal motor deficits and no sensory deficits noted Sensorium / Orientation: alert Psych mental status grossly normal and thought process normal Skin no wounds Rashes: no rashes MDM MDM MDM Narrative Medical decision making narrative: Three-view x-ray series of the left ankle were obtained, shows a nondisplaced oblique fracture to the distal fibula, probably a Reddy B. We will keep her nonweightbearing put her in a boot off her pain medication and referral to orthopedics as an outpatient. Radiography Diagnostic Testing: Clinical Impression(s) from Imaging Studies Ankle X-Ray 04/20/23 21:06 IMPRESSION: Nondisplaced oblique fracture of the distal fibula proximal to the tibial plafond. Electronically Signed: Nelson Knott MD at 21:22 EST , Discharge Plan Triage Chief Complaint: Lower Extremity Injury ED Provider: Fam Maciel Dx/Rx/DC Orders Clinical Impression: Closed fracture of left distal fibula Instructions: Using Crutches: Odt-Ankaid-Rggvzog, ED Ankle Fracture, Distal Fibula Prescriptions: New hydrocodone-acetaminophen [hydrocodone-acetaminophen] 5-325 mg tablet 1 tab PO Q6H PRN PRN (Reason: Pain) 3 Days Qty: 10 0RF No Action duloxetine 60 mg capsule,delayed release(DR/EC) 60 mg PO DAILY Patient Comments: TAKE 1 CAPSULE BY MOUTH EVERY DAY Primary Care Provider: Tremayne Baker Referrals: Tremayne Baker MD [Primary Care Provider] - Angelo Cervantes MD [Med Staff - Active Staff] - As soon as possible (Call for appointment) Disposition Disposition: Home, Self Care What to do if you have Problems For any increased pain, shortness of breath, bleeding, nausea or vomiting, chestpain, or any unexpected problems, contact your Primary Care Provider. Call [facility] ([phone]) or report to the closest Emergency Room. Call 911 if necessary. 04/20/23 0352 <Electronically signed by Fam Maciel MD> Cosigner Signature (if applicable): CC: Dr. Tremayne Baker MD; Dr. Angelo Cervantes MD ~ Signed [facility] Work Phone: evaluookyd noteNo assessment information available [facility] Work Phone: evaluation note* Diagnosis Breast screening Breast screening, unspecified documented in this encounter [facility] note* Diagnosis Abnormal mammogram- Primary Abnormal mammogram, unspecified documented in this encounter [facility] note* Diagnosis Abnormal mammogram Abnormal mammogram, unspecified documented in this encounter [facility] note* Diagnosis Abnormal mammogram Abnormal mammogram, unspecified documented in this encounter [facility] note* Diagnosis Rash- Primary Rash and other nonspecific skin eruption documented in this encounter [facility] note* Diagnosis Perimenopause- Primary Symptomatic menopausal or female climacteric states Irregular menstrual cycle Labile mood Menopausal and perimenopausal disorder Unspecified menopausal and postmenopausal disorder documented in this encounter [facility] note* Diagnosis Perimenopause- Primary Symptomatic menopausal or female climacteric states On hormone replacement therapy Brain fog Acquired hypothyroidism Unspecified hypothyroidism Overweight Vitamin D deficiency Unspecified vitamin D deficiency Family history of cardiovascular disease Family history of other cardiovascular diseases Lipid screening Screening for lipoid disorders Allergic contact dermatitis due to adhesives Contact dermatitis and other eczema due to other chemical products documented in this encounter [facility] for referral (narrative)* Diagnostic Procedure Only (Routine) - Authorized Specialty Diagnoses / Procedures Referred By Carola mccarthy Referred To Contact [facility] Diagnoses Abnormal mammogram Procedures KARIN DIAGNOSTIC RIGHT DIAGNOSTIC MAMMOGRAPHY COMPUTER-AIDED DETCJ UNI Cristina Yang PA-C [address] [place] [address] [facility] [address] [place] [phone] Referral ID Status Reason Start Date Expiration Date Visits Requested Visits Authorized [id number] Authorized Auto-Generat ed Referral 08/05/2023 09/03/2024 1 1 * Diagnostic Procedure Only (Routine) - Authorized Specialty Diagnoses / Procedures Referred By Carola mccarthy Referred To Contact [facility] Diagnoses Abnormal mammogram Procedures US BREAST LTD RIGHT US BREAST UNI REAL TIME WITH IMAGE LIMITED Cristina Yang PA-C [address] [place] [address] [facility] [address] [place] [address] Referral ID Status Reason Start Date Expiration Date Visits Requested Visits Authorized [id number] Authorized Auto-Generat ed Referral 08/05/2023 09/03/2024 1 1 [facility] for referral (narrative)* Diagnostic Procedure Only (Routine) - Closed Specialty Diagnoses / Procedures Referred By Contac t Referred To Contact [facility] Diagnoses Abnormal mammogram Procedures US BREAST LTD RIGHT US BREAST UNI REAL TIME WITH IMAGE LIMITED Cristina Yang PA-C [address] [place] [address] [facility] [address] [place] [address] Referral ID Status Reason Start Date Expiration Date V isits Requested Visits Authorized [id number] Closed Auto-Generate d Referral 08/05/2023 09/03/2024 1 1 [facility] for referral (narrative)No reason for [facility] Reason for visit Narrative* Diagnostic Procedure Only (Routine) - Closed Specialty Diagnoses / Procedures Referred By Contac t Referred To Contact [facility] Diagnoses Breast screening Procedures KARIN SCREENING W [place] SCREENING DIGITAL BREAST TOMOSYNTHESIS BI SCREENING MAMMOGRAPHY BI 2-VIEW BREAST INC Tiesha Kulkarni MD [address] [address] [facility] [address] [place] [address] Referral ID Status Reason Start Date Expiration Date V isits Requested Visits Authorized [id number] Closed Auto-Generate d Referral 03/13/2023 04/11/2024 1 1 [facility] for visit Narrative* Diagnostic Procedure Only (Routine) - Closed Specialty Diagnoses / Procedures Referred By Contac t Referred To Contact [facility] Diagnoses Abnormal mammogram Procedures KARIN DIAGNOSTIC RIGHT DIAGNOSTIC MAMMOGRAPHY COMPUTER-AIDED DETCJ UNI Wehn, Cristina E, PA-C [address] [place] [address] [facility] [address] [place] [address] Referral ID Status Reason Start Date Expiration Date V isits Requested Visits Authorized [id number] Closed Auto-Generate d Referral 08/05/2023 09/03/2024 1 1 [facility] Chief Complaint and Reason for Visit Chief Complaint SYNCOPE Chief Complaint SYNCOPE STOOL- DROPOFF- DIARRHEA Chief Complaint STOOL- DROPOFF- DIAR ZAIRA lower extremity Chief Complaint lower extremity LEFT LEG RM 4 LEFT LEG RM 2 LEFT LEG room 2 FX OF L FIBULA RX HERE Chief Complaint LEFT LEG RM 2 LEFT LEG room 2 FX OF L FIBULA RX HERE Chief Complaint LEFT LEG room 2 FX OF L FIBULA RX HERE Advance Directives Advance Directive Response Recorded Date/ Time Living Will No April 20 9:36pm Power of Cleaning Manager No April 20, 2023 9:36pm Advance Directive Response Recorded Date/ Time Living Will No April 20 023 10:36pm Power of Cleaning Manager No April 20, 2023 10:36pm Summary Purpose Family History No Family History Records FoundNo Family History Records Found Additional Source Comments Goals (unrecognized section and content) Goals may be documented in a n alternate sectionGoals may be documented in an alternate sectionGoals may be documented in an alternate sectionGoals may be documented in an alternate sectionGoals may be documented in an alternate sectionGoals may be documented in an alternate sectionGoals may be documented in an alternate sectionGoals may be documented in an alternate section Care Teams (unrecognized sec tion and content) Team Status: Active Member Role Status Dates Dr. Tremayne Baker MD Family Provider Active Dr. Tremayne Baker MD Primary Care Provider Active Team Status: Active Member Role Status Dates Dr. Tremayne Baker MD Primary Care Provider Active Dr. Beny Jc MD Attending Provider Active Team Status: Inactive Member Role Status Dates Dr. Tremayne Baker MD Primary Care Provider, Attending Provider Active Team Status: Inactive Member Role Status Dates Dr. Tremayne Baker MD Primary Care Provi jack, Attending Provider, Referring Provider Active Team Status: Active Member Role Status Dates Dr. Tremayne Baker MD Primary Care Provider, Referring Provider Active Dr. Beny Jc MD Attending Provider Active Team Status: Inactive Member Role Status Dates Dr. Tremayne Baker MD Primary Care Provider Active Dr. Fam Maciel MD Emergency Provider Active Team Status: Inactive Member Role Status Dates Dr. Tremayne Baker MD Primary Care Provider, Referring Provider Active Angelo Cervantes MD Attending Provider Active Team Status: Inactive Member Role Status Dates Dr. Tremayne Baker MD Primary Care Provider Active Dr. Beny Jc MD Attending Provider Active Team Status: Active Member Role Status Dates Dr. Tremayne Baker MD Primary Care Provider Active Angelo Cervantes MD Attending Provider, Referring Prov ider Active Team Status: Inactive Member Role Status Dates Dr. Tremayne Baker MD Primary Care Provider Active Dr. Fam Maciel MD Attending Provider, Emergency Provider Active [employer] Supervisor Relationship Specialty Start Date End Date Tremayne Baker MD PCP - General Family Medicine 11/08/16 [employer] Supervisor Relationship Specialty Start Date End Date Tremayne Baker MD PCP - General Family Medicine 11/08/16 [employer] House Supervisor Relationship Specialty Start Date End Date Tremayne Baker MD PCP - General Family Medicine 11/08/16 [employer] House Supervisor Relationship Specialty Start Date End Date Tremayne Baker MD PCP - General Family Medicine 11/08/16 [employer] House Supervisor Relationship Specialty Start Date End Date Tremayne Baker MD PCP - General Family Medicine 11/08/16 [employer] House Supervisor Relationship Specialty Start Date End Date Tremayne Baker MD PCP - General Family Medicine 11/08/16 Team Status: Inactive Member Role Status Dates Dr. Tremayne Baker MD Primary Care Provider Active Angelo Cervantes MD Attending Provider, Referring Prov ider Active [employer] House Supervisor Relationship Specialty Start Date End Date Tremayne Baker MD PCP - General Family Medicine 11/08/16 [employer] House Supervisor Relationship Specialty Start Date End Date Tremayne Baker MD PCP - General Family Medicine 11/08/16 [employer] House Supervisor Relationship Specialty Start Date End Date Tremayne Baker MD PCP - General Family Medicine 11/08/16 Team Status: Inactive Member Role Status Dates Dr. Tremayne Baker MD Primary Care Provider Active Start: September 30, 2024 End: September 30, 2024 Dr. Tremayne Baker MD Attending Provider Active Start: September 30, 2024 End: September 30, 2024 Dr. Tremayne Baker MD Referring Provider Active Start: September 30, 2024 End: September 30, 2024 Vat House Supervisor Relationship Specialty Start Date End Date Tremayne Baker MD PCP - General Family Medicine 11/08/16 [employer]at House Supervisor Relationship Specialty Start Date End Date Tremayne Baker MD PCP - General Family Medicine 11/08/16 Source Comments (unrecognize d section and content) In the event this informatio n is protected by the Federal Confidentiality of Alcohol and Drug Abuse Patient Records regulations: The Federal rules restrict any use of the information to criminally investigate or prosecute any alcohol or drug abuse patient.[facility] the event this information is protected by the Federal Confidentiality of Alcohol and Drug Abuse Patient Records regulations: The Federal rules restrict any use of the information to criminally investigate or prosecute any alcohol or drug abuse patient.[facility] HealthIn the event this information is protected by the Federal Confidentiality of Alcohol and Drug Abuse Patient Records regulations: The Federal rules restrict any use of the information to criminally investigate or prosecute any alcohol or drug abuse patient.[facility] HealthIn the event this information is protected by the Federal Confidentiality of Alcohol and Drug Abuse Patient Records regulations: The Federal rules restrict any use of the information to criminally investigate or prosecute any alcohol or drug abuse patient.[facility]In the event this information is protected by the Federal Confidentiality of Alcohol and Drug Abuse Patient Records regulations: The Federal rules restrict any use of the information to criminally investigate or prosecute any alcohol or drug abuse patient.[facility]In the event this information is protected by the Federal Confidentiality of Alcohol and Drug Abuse Patient Records regulations: The Federal rules restrict any use of the information to criminally investigate or prosecute any alcohol or drug abuse patient.[facility]In the event this information is protected by the Federal Confidentiality of Alcohol and Drug Abuse Patient Records regulations: The Federal rules restrict any use of the information to criminally investigate or prosecute any alcohol or drug abuse patient.[facility]In the event this information is protected by the Federal Confidentiality of Alcohol and Drug Abuse Patient Records regulations: The Federal rules restrict any use of the information to criminally investigate or prosecute any alcohol or drug abuse patient.[facility]In the event this information is protected by the Federal Confidentiality of Alcohol and Drug Abuse Patient Records regulations: The Federal rules restrict any use of the information to criminally investigate or prosecute any alcohol or drug abuse patient.[facility]In the event this information is protected by the Federal Confidentiality of Alcohol and Drug Abuse Patient Records regulations: The Federal rules restrict any use of the information to criminally investigate or prosecute any alcohol or drug abuse patient.[facility] HealthIn the event this information is protected by the Federal Confidentiality of Alcohol and Drug Abuse Patient Records regulations: The Federal rules restrict any use of the information to criminally investigate or prosecute any alcohol or drug abuse patient.[facility] Reason for Visit (unrecogniz ed section and content) Reason Comments Radiology US Specialty Diagnoses / Procedures Referred By Carola mccarthy Referred To Contact [facility] Diagnoses Abnormal mammogram Procedures US BREAST LTD RIGHT US BREAST UNI REAL TIME WITH IMAGE LIMITED Cristina Yang, ZEN [address] [place] [address] [facility] [address] [place] [address] Referral ID Status Reason Start Date Expiration Date V isits Requested Visits Authorized [id number] Closed Auto-Generate d Referral 08/05/2023 09/03/2024 1 1 Reason Comments Rash L side ribs x6 days, possible shingles Reason Comments Results Reason Onset Date Comments Menopause Consult [facility] Evaluation 09/09/2024 Reason Comments Consult Perimenopause New Patient Evaluation Specialty Diagnoses / Procedures Referred By Carola mccarthy Referred To Contact Diagnoses Perimenopause Procedures CONSULT TO [facility]/OUTPATIENT [facility] 60 MINUTES Anjelica Harris MD [address] [address] Phone: tel: Referral ID Status Reason Start Date Expiration Date V isits Requested Visits Authorized [id number] Closed PCP Requested Referral 09/09/2024 09/09/2025 1 1 Reason Onset Date Comments Refill Request 01/03/2025 INFORMATION SOURCE (unrecogn ized section and content) DATE CREATED AUTHOR 10/10/2024 [facility] DATE CREATED AUTHOR AUTHOR'S ORGANIZ ATION 12/03/2024 [facility] FOR RECORDS PERTAINING TO PATIENTS WHO ARE [...] BE BASED ON THE PRIMARY CLINICAL RECORDS. [facility]. provides no warranty or guarantee of the accuracy or completeness of information in this document.
[2025-04-09 23:48] VITALS: BMI 30.9
--- NOTE | 2025-04-10 00:01 | EX.ED.DYSGE1 ---
HPI History of Present Illness Chief Complaint: Lower Extremity Injury Narrative Narrative: Patient was seen and examined after presenting to ED for mechanical injury to her left ankle she states that she was walking and then there was some uneven sidewalk she injured her left ankle she states that she is fractured in the past but never required surgery. [facility] Medical History Broken ankle Depression Anxiety Deviated nasal septum Home Medications Medication Instructions Recorded Last Taken Type duloxetine 60 mg capsule,delayed 60 mg PO DAILY 04/20/23 Unknown History release estradiol 0.0375 mg/24 hr 1 patch transdermal .q3day 04/09/25 Unknown History semiweekly transdermal patch progesterone micronized 200 mg 200 mg PO QHS 04/09/25 Unknown History capsule Allergy/AdvReac Type Severity Reaction Status Date / Time cat dander Allergy Sinus Verified 04/09/25 22:49 congestion Seasonal Allergies: Uncoded Allergy Sinus Verified 04/09/25 22:49 congestion Surgical History History of back surgery History of repair of ACL Social History household members: family Smoking Status: Never smoker alcohol intake: current alcohol intake frequency: a few times a week substance use type: does not use ROS ROS ED ROS Narrative Pertinent Positives: Left ankle injury after walking on uneven sidewalk Pertinent Negatives: Head injury loss of consciousness use of anticoagulation numbness tingling patient states that she was able to ambulate but is very painful. The remainder of review of systems negative unless otherwise stated in the HPI above. Systems reviewed including constitutional, psychiatric, cardiovascular, respiratory, integument, HENT, gastrointestinal. EXAM Physical Exam Narrative Exam Narrative: Patient is afebrile hemodynamically stable does not appear toxic or in distress she does have intact MSPs in her extremities no compartment syndrome or compartments are truly soft. No fibular head involvement on the left. She does have tenderness overlying her lateral malleolus no tenderness or swelling overlying the ATF ligament nothing involving the base of the fifth metatarsal. She has good warm well-perfused extremities with strong distal pulses. No evidence of any open wounds no cellulitic appearance vesicular lesions or other necrotizing process Const Vital Signs: 04/09/25 22:49 Temperature 97.8 F Temperature Source Temporal Pulse Rate 68 Respiratory Rate 18 Blood Pressure 116/82 H Blood Pressure Mean 93 Pulse Ox 99 MDM MDM MDM Narrative Medical decision making narrative: Nursing notes, triage notes, available previous documentation, and vital signs were reviewed. Any discrepancies noted were addressed. Differential Diagnoses: Not compartment syndrome not an infectious process or necrotizing process very low suspicion for this being dislocated will evaluate for fracture Interventions: Acetaminophen ibuprofen Labs Reviewed: Not clinically indicated Imaging Reviewed: Personally reviewed and interpreted by me: Left ankle x-ray it appears to me that there is a fracture involving the distal fibula that lateral malleolus is transverse does not appear displaced Previous Documentation Reviewed: None available or applicable at this time. ED Course: Patient presenting with left ankle injury she went Tylenol and ibuprofen only provided for a week we will get some x-rays to evaluate for fracture at this not a dislocation. Patient's plain film imaging demonstrating a small transverse nondisplaced ankle fracture of that left fibula patient will be given a walking boot she can follow-up outpatient This note was made utilizing voice recognition software. All attempts were made to correct spelling or other errors prior to note completion. However, due to the fast-paced nature of emergency medicine, some errors may still be present. Radiography Diagnostic Testing: Clinical Impression(s) from Imaging Studies Ankle X-Ray 04/09/25 23:10 IMPRESSION: Acute nondisplaced transverse fracture of the distal fibula. Overlying soft tissue swelling. Reading Location: [facility] Discharge Plan Triage Chief Complaint: Lower Extremity Injury ED Provider: Jewel Briscoe Dx/Rx/DC Orders Clinical Impression: Fracture of distal end of left fibula, Injury of left ankle, Left ankle swelling Instructions: ED Ankle Fracture, Distal Fibula Prescriptions: No Action duloxetine 60 mg capsule,delayed release(DR/EC) 60 mg PO DAILY Patient Comments: TAKE 1 CAPSULE BY MOUTH EVERY DAY estradiol 0.0375 mg/24 hr patch semiweekly 1 patch transdermal .q3day progesterone micronized 200 mg capsule 200 mg PO QHS Primary Care Provider: Tremayne Roman Referrals: Tremayne Roman MD [Primary Care Provider, Family Practice] Activity Restrictions/Additional Instructions: Recommend icing is much as you can tolerate. Again you can take 1000 mg of Tylenol along with 600 mg of ibuprofen together take this about 3-4 times a day for the next several days. We will give you a walking boot you can follow-up with your primary care doctor as well as an orthopedic surgeon although this is not something that will require surgery do not hesitate to return if you are feeling worse Monitor for signs or symptoms such as increased pressure, firmness, pain, numbness, tingling, changes in colors of your skin such as discoloration or becoming more pale or feeling cooler to the touch. If these occur then we are concerned for something called compartment syndrome and you will need to return to an emergency department immediately. Print Language: Nigerien Disposition Disposition: Home, Self Care
[2025-04-10 00:22] VITALS: BP 108/64; PULSE 65; RESP 18; TEMP 36.8; O2SAT 98
== END 2025-04-10 00:30 | disposition home or self-care (01) ==
PROVIDERS: Emergency Provider Specialist/Technologist Athletic Trainer; PCP Family Medicine; Visit Provider Specialist/Technologist Athletic Trainer
DX: S82.832A Other fracture of upper and lower end of left fibula, initial encounter for closed fracture (principal); X58.XXXA Exposure to other specified factors, initial encounter; Y93.01 Activity, walking, marching and hiking; Y92.480 Sidewalk as the place of occurrence of the external cause; F32.A Depression, unspecified; F41.9 Anxiety disorder, unspecified
CPT/HCPCS: 73610; 99284